=== PATIENT | male | born 1980 | race Caucasian/White ===

== ENCOUNTER → 2016-09-19 | Outpatient (CLI) | payer OTHER ==
[2016-09-19 14:06] LABS: CH 31.6; CHCM 34.8; HCT 50.4 % (39.0-53.0); HDW 2.73; HGB 17.4 gm/dL (13.0-17.5); MCH 31.5 pg (25.0-35.0); MCHC 34.5 g/dL (31.0-37.0); MCV 91.3 fL (80.0-100.0); Mean Platelet Volume 7.4; RBC 5.53 m/uL (4.30-5.90); RDW 12.8 % (11.5-15.5); WBC 6.9 k/uL (3.8-10.6)
[2016-09-19 15:19] LABS: % Iron Saturation 50.2 % (20-50)
== END | disposition home or self-care (01) ==
LOC: LABWHC1 13:25
PROVIDERS: ATTEND Psychiatry & Neurology Neurology
DX: G25.81 Restless legs syndrome (principal); E61.1 Iron deficiency
CPT/HCPCS: 36415; 83540; 83550; 84466; 85027

== ENCOUNTER 2021-05-15 07:07 | Inpatient (IN) | payer OTHER ==
[2021-05-15] MEDS ORDERED: SODIUM CHLORIDE 0.9% 500 ML 500 ML IV ONE (07:26)
[2021-05-15] MEDS ORDERED: DEXAMETHASONE SOD PHOSPHATE 10 MG/ML 1 ML VIAL IV STA (07:26)
--- NOTE | 2021-05-15 07:32 | ED ---
General Adult HPI - General Chief complaint: Shortness of Breath Stated complaint: Chest Pain/JEREMI Time Seen by Provider: 05/15/21 07:16 Source: patient, RN notes reviewed, old records reviewed Mode of arrival: ambulatory Limitations: no limitations - History of Present Illness Initial comments: 41-year-old history of diabetes presenting with increased cough and dyspnea. Patient was diagnosed with coronavirus 9 days ago. He's had symptoms for 10 days. Patient does have some chest congestion, moderate dyspnea and dry cough. He's had fevers. No vomiting or diarrhea. Patient is not vaccinated. - Related Data Allergies Allergy/AdvReac Type Severity Reaction Status Date / Time No Known Allergies Allergy Verified 05/15/21 07:39 Review of Systems ROS Statement: Those systems with pertinent positive or pertinent negative responses have been documented in the HPI. ROS Other: All systems not noted in ROS Statement are negative. Past Medical History Past Medical History: Diabetes Mellitus Additional Past Medical History / Comment(s): obesity History of Any Multi-Drug Resistant Organisms: None Reported Past Surgical History: No Surgical Hx Reported Past Psychological History: Depression Smoking Status: Vaper Past Alcohol Use History: Occasional Past Drug Use History: None Reported General Exam Limitations: no limitations General appearance: alert, in no apparent distress Head exam: Present: atraumatic, normocephalic Eye exam: Present: normal appearance, PERRL ENT exam: Present: mucous membranes dry Neck exam: Present: normal inspection. Absent: tenderness, meningismus Respiratory exam: Present: rales, rhonchi, decreased breath sounds. Absent: respiratory distress, wheezes Cardiovascular Exam: Present: regular rate, normal rhythm GI/Abdominal exam: Present: soft. Absent: distended, tenderness, guarding Extremities exam: Present: normal inspection, normal capillary refill. Absent: pedal edema Neurological exam: Present: alert, oriented X3, CN II-XII intact. Absent: motor sensory deficit Psychiatric exam: Present: normal affect, normal mood Skin exam: Present: warm, dry, intact Course Vital Signs 05/15/21 07:14 Temperature 98.4 F Pulse Rate 84 Respiratory 22 Rate Blood Pressure 114/79 O2 Sat by Pulse 86 L Oximetry EKG Findings - EKG Comments: EKG Findings:: EKG: Normal sinus rhythm, rate of 81, [place] interval 152, QRS duration 92, QTC 436, no ST segment elevation. Medical Decision Making - Medical Decision Making 41-year-old male presenting with cough, dyspnea. Recent diagnosis of coronavirus. Patient is hypoxic on initial evaluation. In the mid 80s. Mo derate respiratory distress. Patient's has chest x-ray showed bilateral infiltrate. He has a normal white blood cell count, he has elevated lactic acid of 2.8, elevated LDH and CRP. He is given steroids and IV fluids in the emergency department. He will be admitted to Dr. Morales who is aware. Both pulmonology and infectious disease placed on consult. - Lab Data Result diagrams: 05/15/21 07:38 05/15/21 07:38 Lab Results 05/15/21 05/15/21 05/15/21 Range/Units 07:38 07:38 07:38 WBC 7.1 (3.8-10.6) k/uL RBC 5.61 (4.30-5.90) m/uL Hgb 17.6 H (13.0-17.5) gm/dL Hct 52.3 (39.0-53.0) % MCV 93.3 (80.0-100.0) fL MCH 31.4 (25.0-35.0) pg MCHC 33.6 (31.0-37.0) g/dL RDW 12.0 (11.5-15.5) % Plt Count 136 L (150-450) k/uL MPV 8.2 Neutrophils % 92 % Lymphocytes % 4 % Monocytes % 4 % Eosinophils % 0 % Basophils % 0 % Neutrophils # 6.5 (1.3-7.7) k/uL Lymphocytes # 0.3 L (1.0-4.8) k/uL Monocytes # 0.3 (0-1.0) k/uL Eosinophils # 0.0 (0-0.7) k/uL Basophils # 0.0 (0-0.2) k/uL PT 11.8 (9.0-12.0) sec INR 1.1 (<1.2) APTT 24.7 (22.0-30.0) sec Sodium 139 (137-145) mmol/L Potassium 3.9 (3.5-5.1) mmol/L Chloride 104 (98-107) mmol/L Carbon Dioxide 24 (22-30) mmol/L Anion Gap 11 mmol/L BUN 19 (9-20) mg/dL Creatinine 0.65 L (0.66-1.25) mg/dL Est GFR (CKD-EPI)AfAm >90 (>60 ml/min/1.73 sqM) Est GFR (CKD-EPI)NonAf >90 (>60 ml/min/1.73 sqM) Glucose 243 H (74-99) mg/dL Plasma Lactic Acid Nico (0.7-2.0) mmol/L Calcium 9.1 (8.4-10.2) mg/dL Magnesium 2.6 H (1.6-2.3) mg/dL Total Bilirubin 0.9 (0.2-1.3) mg/dL AST 34 (17-59) U/L ALT 31 (4-49) U/L Alkaline Phosphatase 52 (38-126) U/L Lactate Dehydrogenase 628 H (313-618) U/L Troponin I (0.000-0.034) ng/mL C-Reactive Protein 24.1 H (<1.0) mg/dL Total Protein 7.3 (6.3-8.2) g/dL Albumin 3.5 (3.5-5.0) g/dL 05/15/21 05/15/21 Range/Units 07:38 07:38 WBC (3.8-10.6) k/uL RBC (4.30-5.90) m/uL Hgb (13.0-17.5) gm/dL Hct (39.0-53.0) % MCV (80.0-100.0) fL MCH (25.0-35.0) pg MCHC (31.0-37.0) g/dL RDW (11.5-15.5) % Plt Count (150-450) k/uL MPV Neutrophils % % Lymphocytes % % Monocytes % % Eosinophils % % Basophils % % Neutrophils # (1.3-7.7) k/uL Lymphocytes # (1.0-4.8) k/uL Monocytes # (0-1.0) k/uL Eosinophils # (0-0.7) k/uL Basophils # (0-0.2) k/uL PT (9.0-12.0) sec INR (<1.2) APTT (22.0-30.0) sec Sodium (137-145) mmol/L Potassium (3.5-5.1) mmol/L Chloride (98-107) mmol/L Carbon Dioxide (22-30) mmol/L Anion Gap mmol/L BUN (9-20) mg/dL Creatinine (0.66-1.25) mg/dL Est GFR (CKD-EPI)AfAm (>60 ml/min/1.73 sqM) Est GFR (CKD-EPI)NonAf (>60 ml/min/1.73 sqM) Glucose (74-99) mg/dL Plasma Lactic Acid Nico 2.8 H* (0.7-2.0) mmol/L Calcium (8.4-10.2) mg/dL Magnesium (1.6-2.3) mg/dL Total Bilirubin (0.2-1.3) mg/dL AST (17-59) U/L ALT (4-49) U/L Alkaline Phosphatase (38-126) U/L Lactate Dehydrogenase (313-618) U/L Troponin I <0.012 (0.000-0.034) ng/mL C-Reactive Protein (<1.0) mg/dL Total Protein (6.3-8.2) g/dL Albumin (3.5-5.0) g/dL Disposition Clinical Impression: COVID-19 Disposition: ADMITTED IP TO THIS [facility] Condition: Stable Is patient prescribed a controlled substance at d/c from ED?: No Referrals: None,Stated [REFERRING] - 1-2 days Decision to Admit Reason: Admit from EC Decision Date: 05/15/21 Decision Time: 08:40
[2021-05-15 07:55] LABS: Basophils % (A) 0 %; Eosinophils % (A) 0 %; HCT 52.3 % (39.0-53.0); HGB 17.6 gm/dL (13.0-17.5); Lymphocytes # (A) 0.3 k/uL (1.0-4.8); Lymphocytes % (A) 4 %; MCH 31.4 pg (25.0-35.0); MCHC 33.6 g/dL (31.0-37.0); MCV 93.3 fL (80.0-100.0); Mean Platelet Volume 8.2; Monocytes # (A) 0.3 k/uL (0-1.0); Monocytes % (A) 4 %; Neutrophils # (A) 6.5 k/uL (1.3-7.7); Neutrophils % (A) 92 %; Platelet Count 136 k/uL (150-450); RBC 5.61 m/uL (4.30-5.90); WBC 7.1 k/uL (3.8-10.6)
[2021-05-15 08:07] LABS: ALT 31 U/L (4-49); AST 34 U/L (17-59); African American GFR (CKD) >90 (>60 ml/min/1.73 sqM); Albumin 3.5 g/dL (3.5-5.0); Alkaline Phosphatase 52 U/L (38-126); Anion Gap 11 mmol/L; Blood Urea Nitrogen 19 mg/dL (9-20); Calcium 9.1 mg/dL (8.4-10.2); Carbon Dioxide 24 mmol/L (22-30); Chloride 104 mmol/L (98-107); Glucose 243 mg/dL (74-99); LDH 628 U/L (313-618); Magnesium 2.6 mg/dL (1.6-2.3); Non-African American GFR(CKD) >90 (>60 ml/min/1.73 sqM); Potassium 3.9 mmol/L (3.5-5.1); Sodium 139 mmol/L (137-145); Total Bilirubin 0.9 mg/dL (0.2-1.3); Total Protein 7.3 g/dL (6.3-8.2)
[2021-05-15 08:08] LABS: INR 1.1 (<1.2); Partial Thromboplastin Time 24.7 sec (22.0-30.0); Prothrombin Time 11.8 sec (9.0-12.0)
[2021-05-15 08:19] LABS: C Reactive Protein 24.1 mg/dL (<1.0)
--- NOTE | 2021-05-15 08:19 | XR ---
EXAMINATION TYPE: XR chest 1V portable DATE OF EXAM: 05/15/2021 COMPARISON: NONE HISTORY: Covid positive, shortness of breath and difficulty breathing TECHNIQUE: Single frontal view of the chest is obtained. FINDINGS: Patchy bilateral airspace disease is present. Patient is rotated. No evident pneumothorax or pleural effusion. Cardiomediastinal silhouette within normal limits accounting for technique. Righ t hemidiaphragm is elevated. IMPRESSION: Correlate for pneumonia.
[2021-05-15] MEDS ORDERED: NALOXONE 0.4 MG/ML 1 ML VIAL IV PRN (08:37)
[2021-05-15] MEDS: SODIUM CHLORIDE 0.9% 1,000 ML IV SCH (09:06)
[2021-05-15] MEDS: ALBUTEROL HFA INHALER INHALATION SCH ×3 (10:53→20:09)
[2021-05-15 11:10] LABS: Glucose,Whole Blood 171 mg/dL (75-99)
[2021-05-15] MEDS: ASCORBIC ACID 500 MG TAB PO SCH (14:20)
[2021-05-15] MEDS: PANTOPRAZOLE 40 MG TABLET PO SCH (14:20)
[2021-05-15] MEDS: CHOLECALCIFEROL 25 MCG (1000 IU) TABLET PO SCH (14:20)
[2021-05-15] MEDS: ZINC SULFATE 220 MG CAP PO SCH (14:20)
[2021-05-15] MEDS: ENOXAPARIN 40 MG/0.4 ML SYRINGE SQ SCH (14:20)
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
--- NOTE | 2021-05-15 15:26 | P.HPIM ---
History of Present Illness H&P Date: 05/15/21 Chief Complaint: Short of breath This is a pleasant 41-year-old patient of Dr. Lio Mendes. Patient has a prior history of diabetes. He lost weight and use of medications. No diet control. Patient has been in the group home for last 4 months. Has been an outbreak in the group home of COVID-19. Patient has not taken vaccination for COVID-19. May 05 she started off getting symptoms the form of a fever. Progressively patient is become more short of breath and coughing. Some change in taste and decrease in smell. Having a mild headache. Tired rundown. Poor appetite. Patient became hypoxic is now admitted. He is outside the hospital guidelines window for IV Remdesivir. Started with IV prednisone. Review of systems: GEN.: Tired EYES: None HEENT: None NECK: None RESPIRATORY: [As above CARDIOVASCULAR: None GASTROINTESTINAL: None GENITOURINARY: None MUSCULOSKELETAL: None LYMPHATICS: None HEMATOLOGICAL: None PSYCHIATRY: None NEUROLOGICAL: None Past medical history to include: Diabetes, currently not on any medications. Social history: Patient is finished to do worse nocturnal ago. Lives with his mother. 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 Family history: Hypertension Physical examination: VITAL SIGNS: 98.4, 84, 22, 140s/79, 86% room air, upon presentation GENERAL: BMI 39.2, laying in bed, awake, tired. EYES: Pupils equal. Conjunctiva normal. HEENT: External appearance of nose and ears normal, oral cavity grossly normal. NECK: JVD not raised; masses not palpable. HEART: First and second heart sounds are normal; no edema. LUNGS: Respiratory rate increased, decreased breath sounds crackles. ABDOMEN: Soft, nontender, liver spleen not palpable, no masses palpable. PSYCH: Alert and oriented x3; mood and affect normal. NEUROLOGICAL: Cranial nerves grossly intact; no facial asymmetry, power and sensation grossly intact. LYMPHATICS: No lymph nodes palpable in the axilla and neck INVESTIGATIONS, reviewed in the clinical context: WBC 7.1 hemoglobin 7.6 platelets 136 lymphocytes 0.3 potassium 3.9 sodium 139 creatinine 0.65 d-dimer 0.59 Glucose 243 plasma lactic acid 2.8 troponin I less than 0.012 CRP 24.1 pro- calcitonin 0.46 Chest x-ray film personally reviewed by me-bilateral infiltrates EKG tracing personally reviewed by me-normal sinus rhythm. Rate 86 Assessment and plan: -COVID 19 pneumonitis the symptoms starting 10 days ago. Progressively getting worse. With hypoxia. Nonvaccinated for COVID-19 Dexamethasone 6, subcu Lovenox, supplemented syncopal vitamin C vitamin D. -Acute hypoxic respiratory failure from COVID 19 pneumonitis Nasal cannula 5 L. Incentive spirometry. -Obesity BMI 39.2 Weight loss measures -Diabetes mellitus type 2, patient been off medications. Currently uncontrolled with hyperglycemia. Expected to get worse with getting steroids Start Levemir 14 units subcu daily at bedtime. Sliding scale insulin. -Thrombocytopenia mild with COVID 19 pneumonitis Follow CBC -Lactic acidosis, type II from fluid deficit IV fluids Dexamethasone, subcu Lovenox, sitting vitamin C vitamin D. Oxygen supplement 5 L. Incentive spirometry. Care was discussed with the patient he has an accompanying soft center in the room. Consultation to pulmonary ID. Given the complexity and severity of patient's condition expect the patient to be in the hospital at least for 2 overnights Past Medical History Past Medical History: Diabetes Mellitus Additional Past Medical History / Comment(s): obesity History of Any Multi-Drug Resistant Organisms: None Reported Past Surgical History: No Surgical Hx Reported Past Psychological History: Depression Smoking Status: Vaper Past Alcohol Use History: Occasional Past Drug Use History: None Reported - Past Family History Father Family Medical History: Hypertension Medications and Allergies Home Medications Medication Instructions Recorded Confirmed Type Acetaminophen Tab [Tylenol Tab] 1,000 mg PO BID PRN 05/15/21 05/15/21 History Ipratropium-Albuterol Nebulize 3 ml INHALATION RT-TID PRN 05/15/21 05/15/21 History [Duoneb 0.5 mg-3 mg/3 ml Soln] Omeprazole 20 mg PO DAILY 05/15/21 05/15/21 History Allergies Allergy/AdvReac Type Severity Reaction Status Date / Time No Known Allergies Allergy Verified 05/15/21 09:01 Physical Exam Vitals: Vital Signs Temp Pulse Resp BP Pulse Ox 05/15/21 11:05 75 18 118/77 89 L 05/15/21 09:08 76 18 118/69 90 L 05/15/21 07:14 98.4 F 84 22 114/79 86 L Intake and Output 05/14/21 05/15/21 05/15/21 22:59 06:59 14:59 Other: Weight 113.398 kg Results CBC & Chem 7: 05/15/21 07:38 05/15/21 07:38 Labs: Abnormal Lab Results - Last 24 Hours (Table) 05/15/21 05/15/21 05/15/21 Range/Units 07:38 07:38 07:38 Hgb 17.6 H (13.0-17.5) gm/dL Plt Count 136 L (150-450) k/uL Lymphocytes # 0.3 L (1.0-4.8) k/uL Creatinine 0.65 L (0.66-1.25) mg/dL Glucose 243 H (74-99) mg/dL POC Glucose (mg/dL) (75-99) mg/dL Plasma Lactic Acid Nico 2.8 H* (0.7-2.0) mmol/L Magnesium 2.6 H (1.6-2.3) mg/dL Lactate Dehydrogenase 628 H (313-618) U/L C-Reactive Protein 24.1 H (<1.0) mg/dL 05/15/21 Range/Units 11:09 Hgb (13.0-17.5) gm/dL Plt Count (150-450) k/uL Lymphocytes # (1.0-4.8) k/uL Creatinine (0.66-1.25) mg/dL Glucose (74-99) mg/dL POC Glucose (mg/dL) 171 H (75-99) mg/dL Plasma Lactic Acid Nico (0.7-2.0) mmol/L Magnesium (1.6-2.3) mg/dL Lactate Dehydrogenase (313-618) U/L C-Reactive Protein (<1.0) mg/dL
[2021-05-15 16:58] LABS: Glucose,Whole Blood 197 mg/dL (75-99)
[2021-05-15] MEDS: INSULIN ASPART (NovoLOG) 100 UNIT/ML VIAL SQ SCH (17:17)
[2021-05-15 20:47] LABS: Glucose,Whole Blood 175 mg/dL (75-99)
[2021-05-16] MEDS: SODIUM CHLORIDE 0.9% 1,000 ML IV SCH ×2 (03:56→11:50)
[2021-05-16 06:48] LABS: Glucose,Whole Blood 150 mg/dL (75-99)
[2021-05-16] MEDS: ZINC SULFATE 220 MG CAP PO SCH (07:36)
[2021-05-16] MEDS: CHOLECALCIFEROL 25 MCG (1000 IU) TABLET PO SCH (07:37)
[2021-05-16] MEDS: ASCORBIC ACID 500 MG TAB PO SCH (07:37)
[2021-05-16] MEDS: PANTOPRAZOLE 40 MG TABLET PO SCH (07:37)
[2021-05-16] MEDS: dexAMETHasone 2 MG TAB PO SCH (07:37)
[2021-05-16] MEDS: INSULIN ASPART (NovoLOG) 100 UNIT/ML VIAL SQ SCH ×3 (07:38→17:06)
[2021-05-16] MEDS: ENOXAPARIN 40 MG/0.4 ML SYRINGE SQ SCH (07:38)
[2021-05-16] MEDS: ALBUTEROL HFA INHALER INHALATION SCH ×4 (07:50→19:03)
--- NOTE | 2021-05-16 08:18 | P.CONS ---
History of Present Illness - Reason for Consult Consult date: 05/15/21 covid 19 pneumonia Requesting physician: Juvencio Morales - Chief Complaint shortness of breath and cough x 10 days - History of Present Illness History of present illness : Patient is 49-year-old male with a past medical history significant for diabetes mellitus in this patient started getting sick around May 05 when started having a fever some congestion cough patient was diagnosed with a COVID-19 1 9 days ago patient has not been brought to the ER early this morning for evaluation of increasing shortness of breath persistent fever and cough patient been complaining of shortness of breath on minimal exertion even he has a cough which is moderate intensity and mostly dry in nature no pleuritic chest pain some nausea decreased oral intake but no vomiting no abdominal pain no diarrhea patient on presentation the hospital was afebrile patient was hypoxic with O2 sats of 86% on room air did have a normal white count with lymphopenia D-dimer was normal creatinine was normal lactic acid was elevated did have elevated ferritin level exams are normal CRP is 24.1 blood cultures 0.46 patient did have a chest x-ray correlate for pneumonia patient was admitted to hospital infectious disease was consulted for further management Review of system: CONSTITUTIONAL: Positive for weakness along with the fever. EYES: No complaint. ENT: No complaint. RESPIRATORY: As per history of present illness. CARDIOVASCULAR: No complaint. GENITOURINARY: No complaint. GASTROINTESTINAL: As per history of present illness. MUSCULOSKELETAL: No complaint. INTEGUMENTARY: No complaint. PSYCHOLOGIC: No complaint. ENDOCRINE: No complaint. NEUROLOGIC: No complaint. Past medical history : Reviewed, documented below Past surgical history : Reviewed, documented below Social history: Reviewed, documented below Medications: Reviewed, as documented below EXAMINATION: Vital sigans= Reviewed and documented below GENERAL DESCRIPTION: Middle-aged male lying in bed, no distress. No tachypnea or accessory muscle of respiration use. HEENT: Shows Pallor , no scleral icterus. Oral mucous membrane is dry. NECK: Trachea central, no thyromegaly. LUNGS: Unlabored breathing. Coarse breath sounds in the bases bilaterally. No wheeze HEART: S1, S2, regular rate and rhythm. ABDOMEN: Soft, no tenderness , guarding or rigidity EXTREMITIES: No edema of feet. SKIN: No rash, no masses palpable. NEUROLOGICAL: The patient is awake, alert, oriented x3, mood and affect normal. LABS AND RADIOLOGY: Reviewed results see below Assessment : Patient presented to hospital with increasing shortness of breath and cough in this patient who did have evidence of multifocal pneumonia secondary to COVID-19 infection patient symptom has been going on for more than 10 days now and will not qualify for remdesivir per [facility] policy, clinically no evidence of any secondary bacterial pneumonia and treatment is mostly supportive Plan: 1-patient has been started on Lovenox on dexamethasone zinc and ascorbic acid 2-no need for systemic antibiotics 3-droplet isolation and respiratory support We will follow on clinical condition and cultures to further adjust medication if needed Thank you for this consultation we will follow the patient along with you Past Medical History Past Medical History: Diabetes Mellitus Additional Past Medical History / Comment(s): obesity History of Any Multi-Drug Resistant Organisms: None Reported Past Surgical History: No Surgical Hx Reported Past Anesthesia/Blood Transfusion Reactions: No Reported Reaction Past Psychological History: Depression Smoking Status: Vaper Past Alcohol Use History: Occasional Past Drug Use History: None Reported - Past Family History Father Family Medical History: Hypertension Medications and Allergies Home Medications Medication Instructions Recorded Confirmed Type Acetaminophen Tab [Tylenol Tab] 1,000 mg PO BID PRN 05/15/21 05/15/21 History Ipratropium-Albuterol Nebulize 3 ml INHALATION RT-TID PRN 05/15/21 05/15/21 History [Duoneb 0.5 mg-3 mg/3 ml Soln] Omeprazole 20 mg PO DAILY 05/15/21 05/15/21 History Allergies Allergy/AdvReac Type Severity Reaction Status Date / Time No Known Allergies Allergy Verified 05/15/21 09:01 Physical Exam Vitals: Vital Signs Temp Pulse Pulse Resp BP BP Pulse Ox 05/15/21 13:30 97.6 F 67 20 120/80 91 L 05/15/21 12:56 90 L 05/15/21 11:05 75 18 118/77 89 L 05/15/21 09:08 76 18 118/69 90 L 05/15/21 07:14 98.4 F 84 22 114/79 86 L Intake and Output 05/15/21 05/15/21 05/15/21 06:59 14:59 22:59 Other: Weight 113.398 kg Results CBC & Chem 7: 05/15/21 07:38 05/15/21 07:38 Labs: Abnormal Lab Results - Last 24 Hours (Table) 05/15/21 05/15/21 05/15/21 Range/Units 07:38 07:38 07:38 Hgb 17.6 H (13.0-17.5) gm/dL Plt Count 136 L (150-450) k/uL Lymphocytes # 0.3 L (1.0-4.8) k/uL Creatinine 0.65 L (0.66-1.25) mg/dL Glucose 243 H (74-99) mg/dL POC Glucose (mg/dL) (75-99) mg/dL Plasma Lactic Acid Nico 2.8 H* (0.7-2.0) mmol/L Magnesium 2.6 H (1.6-2.3) mg/dL Ferritin 1834.0 H (22.0-322.0) ng/mL Lactate Dehydrogenase 628 H (313-618) U/L C-Reactive Protein 24.1 H (<1.0) mg/dL Procalcitonin (0.02-0.09) ng/mL 05/15/21 05/15/21 Range/Units 07:38 11:09 Hgb (13.0-17.5) gm/dL Plt Count (150-450) k/uL Lymphocytes # (1.0-4.8) k/uL Creatinine (0.66-1.25) mg/dL Glucose (74-99) mg/dL POC Glucose (mg/dL) 171 H (75-99) mg/dL Plasma Lactic Acid Nico (0.7-2.0) mmol/L Magnesium (1.6-2.3) mg/dL Ferritin (22.0-322.0) ng/mL Lactate Dehydrogenase (313-618) U/L C-Reactive Protein (<1.0) mg/dL Procalcitonin 0.46 H (0.02-0.09) ng/mL
[2021-05-16 11:39] LABS: Glucose,Whole Blood 138 mg/dL (75-99)
[2021-05-16] MEDS: BARICITINIB 2 MG TABLET PO SCH (13:45)
[2021-05-16 14:51] VITALS: BMI 39.1
--- NOTE | 2021-05-16 15:17 | P.PN ---
Subjective Progress Note Date: 05/16/21 Principal diagnosis: Coronavirus associated pneumonia. This is a 41-year-old male patient with a history of diabetes mellitus, obesity, vaping. He has a 10 day history of fever, poor appetite, shortness of breath cough and congestion that has been progressively worse. He tested positive for COVID-19 on 05/05/2021 as an inmate at the [facility]. He was brought into the emergency room today for progressing symptoms and was found to be hypoxemic with O2 saturation 86% on room air. Chest x-ray reveals bilateral patchy airspace disease. White count 7.1. Reglan 17.6. Platelets 136. Lymphocytes 0.3. D-dimer 0.59. Sodium 139. Potassium 3.9. Creatinine 0.65. Glucose 171. Lactic acid 1.4. Ferritin 1834. AST 34. ALT 31. LDH 628. C- reactive protein 24.1. Pro-calcitonin 0.46. He's been initiated on Decadron, Lovenox, vitamin supplements. He is seen on the regular medical floor. He sitting up in bed. Awake and alert in no acute distress. He is maintaining O2 saturations 89-90% on 5 L/m per nasal cannula. Progress note dated 05/16/2021. 41-year-old male, with a history of diabetes and obesity. The patient wasn't inmate at [facility]. He was brought to the hospital with increasing shortness of breath, and discovered to have coronavirus associated pneumonia. Currently, he is on nonrebreather mask, and nasal cannula high flow, and 15 L/m. He states that he feels okay when he sitting still, but becomes very short of breath when he exerts himself. Because of his worsening oxygenation, today we started him on HEVER. No new laboratory data on this patient. Chest x-ray from yesterday is reviewed. Objective - Vital Signs Vital signs: Vital Signs Temp 98.5 F 05/16/21 09:09 Pulse 63 05/16/21 09:09 Resp 17 05/16/21 09:09 BP 118/76 05/16/21 09:09 Pulse Ox 91 L 05/16/21 11:36 Intake & Output 05/15/21 05/16/21 05/16/21 18:59 06:59 18:59 Weight 113.398 kg 113.398 kg Other: # Voids 2 # Bowel Movements 1 - Exam Oriented 3, mild tachypnea, no audible wheezing, use of accessory muscles, or conversational dyspnea. HEENT examination is grossly unremarkable. Neck supple. Full range of motion. No adenopathy thyromegaly or neck vein distention. Cardiovascular examination reveals regular rhythm rate. S1-S2 normal. No S3 or S4. No discernible murmur noted. Heart sounds are distant. Heart rate 63 bpm. Lungs reveal diffuse bilateral rhonchi. Mild crackles are noted. No wheezes. Breath sounds are equal bilaterally. Saturations are between 89 and 92%. Currently on a nonrebreather mask, and 15 L high flow nasal cannula. Abdomen soft bowel sounds are heard. No masses or tenderness. Extremities are intact. No cyanosis clubbing or edema. Skin is without rash or lesion. Neurologic examination is brief but nonfocal. - Labs CBC & Chem 7: 05/15/21 07:38 05/15/21 07:38 Labs: Abnormal Lab Results - Last 24 Hours (Table) 05/15/21 05/15/21 05/16/21 Range/Units 16:56 20:44 06:47 POC Glucose (mg/dL) 197 H 175 H 150 H (75-99) mg/dL 05/16/21 Range/Units 11:37 POC Glucose (mg/dL) 138 H (75-99) mg/dL Assessment and Plan Assessment: Acute hypoxemic respiratory failure secondary to coronavirus associated pneumonia. Elevated inflammatory markers secondary to coronavirus infection. Obesity. History of diabetes mellitus. Plan: Plan dated 05/16/2021. The patient seems to be reasonably stable, though becomes very short of breath with any activity. He remains on a nonrebreather mask, and 15 L high flow nasal cannula. Today, in addition to the current medications, we added HEVER. His other medications including albuterol inhaler, vitamin C, vitamin D3, and zinc, as well as Decadron, and Lovenox. Additional recommendations and suggestions are forthcoming. We will continue to follow the patient and make recommend ations where appropriate. Time with Patient: Less than 30
[2021-05-16 16:42] LABS: Glucose,Whole Blood 139 mg/dL (75-99)
--- NOTE | 2021-05-16 19:24 | P.PN ---
Progress Note - Text Progress Note Date: 05/16/21 Chief Complaint: Short of breath This is a pleasant 41-year-old patient of Dr. Lio Mendes. Patient has a prior history of diabetes. He lost weight and use of medications. No diet control. Patient has been in the shelter for last 4 months. Has been an outbreak in the shelter of COVID-19. Patient has not taken vaccination for COVID-19. May 05 she started off getting symptoms the form of a fever. Progressively patient is become more short of breath and coughing. Some change in taste and decrease in smell. Having a mild headache. Tired rundown. Poor appetite. Patient became hypoxic is now admitted. He is outside the hospital guidelines window for IV Remdesivir. Started with IV prednisone. May 16: Patient got up to 15 L of high flow cannula. With a nonrebreather. The mask is not fitting well. I've asked the nurse to try to adjust that. Not much of an appetite. Tired. We'll have the patient sit up in a chair Review of systems: Was done for constitutional, cardiovascular, GI, pulmonary. relevant finding as above Active Medications Acetaminophen (Acetaminophen Tab 325 Mg Tab) 650 mg PO Q6HR PRN PRN Reason: Mild Pain or Fever > 100.5 Albuterol Sulfate (Albuterol Hfa Inhaler) 2 puff INHALATION RT-QID [facility] Last Admin: 05/16/21 19:03 Dose: 2 puff Documented by: Ascorbic Acid (Ascorbic Acid 500 Mg Tab) 1,000 mg PO DAILY [facility] Last Admin: 05/16/21 07:37 Dose: 1,000 mg Documented by: Baricitinib (Baricitinib 2 Mg Tablet) 4 mg PO DAILY@1200 [facility] Stop: 05/29/21 12:01 Last Admin: 05/16/21 13:45 Dose: 4 mg Documented by: Cholecalciferol (Cholecalciferol 25 Mcg (1000 Iu) Tablet) 100 mcg PO DAILY [facility] Last Admin: 05/16/21 07:37 Dose: 100 mcg Documented by: Dexamethasone (Dexamethasone 2 Mg Tab) 6 mg PO DAILY [facility] Last Admin: 05/16/21 07:37 Dose: 6 mg Documented by: Enoxaparin Sodium (Enoxaparin 40 Mg/0.4 Ml Syringe) 40 mg SQ DAILY [facility] Last Admin: 05/16/21 07:38 Dose: 40 mg Documented by: Sodium Chloride (Saline 0.9%) 1,000 mls @ 75 mls/hr IV .[id number] [facility] Last Admin: 05/16/21 11:50 Dose: 75 mls/hr Documented by: Insulin Aspart (Insulin Aspart (Novolog) 100 Unit/Ml Vial) 0 unit SQ AC-TID [facility]; Protocol Last Admin: 05/16/21 17:06 Dose: 1 unit Documented by: Naloxone HCl (Naloxone 0.4 Mg/Ml 1 Ml Vial) 0.2 mg IV Q2M PRN PRN Reason: Opioid Reversal Pantoprazole Sodium (Pantoprazole 40 Mg Tablet) 40 mg PO DAILY [facility] Last Admin: 05/16/21 07:37 Dose: 40 mg Documented by: Zinc Sulfate (Zinc Sulfate 220 Mg Cap) 220 mg PO DAILY [facility] Last Admin: 05/16/21 07:36 Dose: 220 mg Documented by: Past medical history to include: Diabetes, currently not on any medications. Social history: Patient is finished to do worse nocturnal ago. Lives with his mother. 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 Family history: Hypertension Physical examination: VITAL SIGNS: 99, 77, 19, 132/83, 91% on 15 L, Ventimask-low GENERAL: Declining in bed, awake, short of breath. LUNGS: Respiratory rate increased, PSYCH: Alert and oriented x3; mood and affect anxious NEUROLOGICAL: Cranial nerves grossly intact; no facial asymmetry, moving all 4 limbs Rest of exam as per pulmonary and nursing INVESTIGATIONS, reviewed in the clinical context: WBC 7.1 hemoglobin 7.6 platelets 136 lymphocytes 0.3 potassium 3.9 sodium 139 creatinine 0.65 d-dimer 0.59 Glucose 243 plasma lactic acid 2.8 troponin I less than 0.012 CRP 24.1 pro- calcitonin 0.46 Chest x-ray film personally reviewed by me-bilateral infiltrates EKG tracing personally reviewed by me-normal sinus rhythm. Rate 86 Assessment and plan: -COVID 19 pneumonitis the symptoms starting 10 days ago. Progressively getting worse. With hypoxia. Nonvaccinated for COVID-19: Worsening Dexamethasone 6, subcu Lovenox, supplemented syncopal vitamin C vitamin D. -Acute hypoxic respiratory failure from COVID 19 pneumonitis: Worsening Nasal cannula 15 L. Incentive spirometry. -Obesity BMI 39.2 Weight loss measures -Diabetes mellitus type 2, patient been off medications. Currently uncontrolled with hyperglycemia. Expected to get worse with getting steroids Start Levemir 14 units subcu daily at bedtime. Sliding scale insulin. -Thrombocytopenia mild with COVID 19 pneumonitis Follow CBC -Lactic acidosis, type II from fluid deficit IV fluids Dexamethasone, subcu Lovenox, sitting vitamin C vitamin D. Oxygen supplement 15 L. Incentive spirometry. Care was discussed with the patient
[2021-05-16 20:27] LABS: Glucose,Whole Blood 177 mg/dL (75-99)
--- NOTE | 2021-05-16 22:21 | PN ---
PROGRESS NOTE DATE OF SERVICE: 05/16/2021 REASON FOR FOLLOWUP: COVID-19 pneumonia. INTERVAL HISTORY: The patient is afebrile. Complaining of more shortness of breath today. The patient denies having any chest pain. He continues to have a cough, bringing up some sputum. No vomiting. No abdominal pain or diarrhea. PHYSICAL EXAMINATION: Blood pressure 136/75, pulse of 59, temperature 98.1. He is 91% on 15 L of high-flow oxygen. General description is a middle-aged male lying in bed in no distress. RESPIRATORY SYSTEM: Unlabored breathing. Decreased intensity of breath sounds. No wheeze. HEART: S1, S2. Regular rate and rhythm. ABDOMEN: Soft. No tenderness. EXTREMITIES: No edema of the feet. LABS: No new labs have been obtained today. DIAGNOSTIC IMPRESSION AND PLAN: Patient with acute COVID-19 pneumonia in this patient who did have overall worsening of his condition in the last 24 hours. The patient will be started on baricitinib; to continue along with dexamethasone, Lovenox, zinc and ascorbic acid and respiratory support. Monitor clinical course closely. MMODL / IJN: [id number] /
[2021-05-17] MEDS: SODIUM CHLORIDE 0.9% 1,000 ML IV SCH ×2 (03:12→11:50)
[2021-05-17 07:04] LABS: Glucose,Whole Blood 140 mg/dL (75-99)
[2021-05-17] MEDS: ENOXAPARIN 40 MG/0.4 ML SYRINGE SQ SCH (07:07)
[2021-05-17] MEDS: ASCORBIC ACID 500 MG TAB PO SCH (07:07)
[2021-05-17] MEDS: PANTOPRAZOLE 40 MG TABLET PO SCH (07:07)
[2021-05-17] MEDS: dexAMETHasone 2 MG TAB PO SCH (07:07)
[2021-05-17] MEDS: CHOLECALCIFEROL 25 MCG (1000 IU) TABLET PO SCH (07:07)
[2021-05-17] MEDS: ZINC SULFATE 220 MG CAP PO SCH (07:08)
[2021-05-17] MEDS: INSULIN ASPART (NovoLOG) 100 UNIT/ML VIAL SQ SCH ×3 (07:08→17:05)
[2021-05-17 08:21] LABS: Basophils % (A) 0 %; Eosinophils % (A) 0 %; HCT 49.3 % (39.0-53.0); HGB 16.1 gm/dL (13.0-17.5); Lymphocytes # (A) 0.5 k/uL (1.0-4.8); Lymphocytes % (A) 7 %; MCH 31.1 pg (25.0-35.0); MCHC 32.7 g/dL (31.0-37.0); MCV 95.2 fL (80.0-100.0); Monocytes # (A) 0.6 k/uL (0-1.0); Monocytes % (A) 8 %; Neutrophils # (A) 6.2 k/uL (1.3-7.7); Neutrophils % (A) 84 %; Platelet Count 180 k/uL (150-450); RBC 5.17 m/uL (4.30-5.90); WBC 7.3 k/uL (3.8-10.6)
[2021-05-17 08:40] LABS: ALT 26 U/L (4-49); AST 28 U/L (17-59); African American GFR (CKD) >90 (>60 ml/min/1.73 sqM); Albumin 2.9 g/dL (3.5-5.0); Albumin/Globulin Ratio 0.9; Alkaline Phosphatase 43 U/L (38-126); Anion Gap 6 mmol/L; Blood Urea Nitrogen 22 mg/dL (9-20); Calcium 8.7 mg/dL (8.4-10.2); Carbon Dioxide 26 mmol/L (22-30); Chloride 113 mmol/L (98-107); Globulin 3.3 g/dL; Glucose 156 mg/dL (74-99); Non-African American GFR(CKD) >90 (>60 ml/min/1.73 sqM); Potassium 4.4 mmol/L (3.5-5.1); Sodium 145 mmol/L (137-145); Total Bilirubin 0.9 mg/dL (0.2-1.3); Total Protein 6.2 g/dL (6.3-8.2)
[2021-05-17] MEDS: ALBUTEROL HFA INHALER INHALATION SCH ×4 (08:51→21:57)
[2021-05-17 11:29] LABS: Glucose,Whole Blood 120 mg/dL (75-99)
[2021-05-17] MEDS: BARICITINIB 2 MG TABLET PO SCH (11:51)
--- NOTE | 2021-05-17 11:56 | P.PN ---
Subjective Progress Note Date: 05/17/21 Principal diagnosis: Coronavirus associated pneumonia. This is a 41-year-old male patient with a history of diabetes mellitus, obesity, vaping. He has a 10 day history of fever, poor appetite, shortness of breath cough and congestion that has been progressively worse. He tested positive for COVID-19 on 05/05/2021 as an inmate at the [facility]. He was brought into the emergency room today for progressing symptoms and was found to be hypoxemic with O2 saturation 86% on room air. Chest x-ray reveals bilateral patchy airspace disease. White count 7.1. Reglan 17.6. Platelets 136. Lymphocytes 0.3. D-dimer 0.59. Sodium 139. Potassium 3.9. Creatinine 0.65. Glucose 171. Lactic acid 1.4. Ferritin 1834. AST 34. ALT 31. LDH 628. C- reactive protein 24.1. Pro-calcitonin 0.46. He's been initiated on Decadron, Lovenox, vitamin supplements. He is seen on the regular medical floor. He sitting up in bed. Awake and alert in no acute distress. He is maintaining O2 saturations 89-90% on 5 L/m per nasal cannula. Progress note dated 05/16/2021. 41-year-old male, with a history of diabetes and obesity. The patient wasn't inmate at [facility]. He was brought to the hospital with increasing shortness of breath, and discovered to have coronavirus associated pneumonia. Currently, he is on nonrebreather mask, and nasal cannula high flow, and 15 L/m. He states that he feels okay when he sitting still, but becomes very short of breath when he exerts himself. Because of his worsening oxygenation, today we started him on HEVER. No new laboratory data on this patient. Chest x-ray from yesterday is reviewed. Progress note dated 05/17/2021. 41-year-old male, with a history of diabetes mellitus and obesity. The patient was seen yesterday and again seen today, in room 484. He is an inmate at [facility]. He was brought in with coronavirus associated pneumonia, and increasing shortness of breath. He remains on a partial rebreather mask, and 15 L high flow nasal O2. An officer is in the room with him. He is laying flat in bed. Does not appear to be in any significant distress. Currently labs include a white count 7.3, he will be 16.1, hematocrit 49.3, platelet count 180,000. D- dimer is 0.66. Sodium 145, potassium 4.4, chlorides 113, CO2 26, normal anion gap, BUN 22, and creatinine 0.82. No recent chest x-ray, the last one being done on May 15. Objective - Vital Signs Vital signs: Vital Signs Temp 99.3 F 05/17/21 09:54 Pulse 50 L 05/17/21 09:54 Resp 22 05/17/21 09:54 BP 125/81 05/17/21 09:54 Pulse Ox 90 L 05/17/21 09:54 Intake & Output 05/16/21 05/17/21 05/17/21 18:59 06:59 18:59 Intake Total 600 Balance 600 Weight 113.398 kg Intake: Intake, IV Titration 600 Amount Sodium Chloride 0.9% 1, 600 000 ml @ 75 mls/hr IV . [id number] [facility] Rx#:[id number] Other: # Voids 2 1 - Exam Oriented 3, mild tachypnea, no audible wheezing, use of accessory muscles, or conversational dyspnea. HEENT examination is grossly unremarkable. Neck supple. Full range of motion. No adenopathy thyromegaly or neck vein distention. Cardiovascular examination reveals regular rhythm rate. S1-S2 normal. No S3 or S4. No discernible murmur noted. Heart sounds are distant. Heart rate 56 bpm. Lungs reveal diffuse bilateral rhonchi. Mild crackles are noted. No wheezes. Breath sounds are equal bilaterally. Saturations are between 90 and 92%. Currently on a partial rebreather mask, and 15 L high flow nasal cannula. Abdomen soft bowel sounds are heard. No masses or tenderness. Extremities are intact. No cyanosis clubbing or edema. Skin is without rash or lesion. Neurologic examination is brief but nonfocal. - Labs CBC & Chem 7: 05/17/21 08:00 05/17/21 07:53 Labs: Abnormal Lab Results - Last 24 Hours (Table) 05/16/21 05/16/21 05/17/21 Range/Units 16:39 20:26 07:03 Lymphocytes # (1.0-4.8) k/uL D-Dimer (<0.60) mg/L FEU Chloride (98-107) mmol/L BUN (9-20) mg/dL Glucose (74-99) mg/dL POC Glucose (mg/dL) 139 H 177 H 140 H (75-99) mg/dL C-Reactive Protein (<1.0) mg/dL Total Protein (6.3-8.2) g/dL Albumin (3.5-5.0) g/dL 05/17/21 05/17/21 05/17/21 Range/Units 07:53 07:53 07:53 Lymphocytes # (1.0-4.8) k/uL D-Dimer 0.66 H (<0.60) mg/L FEU Chloride 113 H (98-107) mmol/L BUN 22 H (9-20) mg/dL Glucose 156 H (74-99) mg/dL POC Glucose (mg/dL) (75-99) mg/dL C-Reactive Protein 4.1 H (<1.0) mg/dL Total Protein 6.2 L (6.3-8.2) g/dL Albumin 2.9 L (3.5-5.0) g/dL 05/17/21 05/17/21 Range/Units 08:00 11:28 Lymphocytes # 0.5 L (1.0-4.8) k/uL D-Dimer (<0.60) mg/L FEU Chloride (98-107) mmol/L BUN (9-20) mg/dL Glucose (74-99) mg/dL POC Glucose (mg/dL) 120 H (75-99) mg/dL C-Reactive Protein (<1.0) mg/dL Total Protein (6.3-8.2) g/dL Albumin (3.5-5.0) g/dL Assessment and Plan Assessment: Acute hypoxemic respiratory failure secondary to coronavirus associated pneumonia. Elevated inflammatory markers secondary to coronavirus infection. Obesity. History of diabetes mellitus. Plan: Plan dated 05/16/2021. The patient seems to be reasonably stable, though becomes very short of breath with any activity. He remains on a nonrebreather mask, and 15 L high flow nasal cannula. Today, in addition to the current medications, we added HEVER. His other medications including albuterol inhaler, vitamin C, vitamin D3, and zinc, as well as Decadron, and Lovenox. Additional recommendations and suggestions are forthcoming. We will continue to follow the patient and make recommendations where appropriate. Plan dated 05/17/2021. The patient appears to be reasonably stable today. He is receiving all appropriate medications. Yesterday, he was on a nonrebreather mass. Today's on a partial rebreather mask. He is receiving normal medications including albuterol inhaler, vitamin C, vitamin D3, zinc, Decadron, Lovenox, and HEVER. We will continue to follow make recommendations where appropriate. Prognosis is guarded. The patient is likely a bit better today than he was yesterday. I did tell him to move about in bed when he is laying in bed. Time with Patient: Less than 30
--- NOTE | 2021-05-17 12:57 | P.PN ---
Progress Note - Text Progress Note Date: 05/17/21 Chief Complaint: Short of breath This is a pleasant 41-year-old patient of Dr. Lio Mendes. Patient has a prior history of diabetes. He lost weight and use of medications. No diet control. Patient has been in the shelter for last 4 months. Has been an outbreak in the shelter of COVID-19. Patient has not taken vaccination for COVID-19. May 05 she started off getting symptoms the form of a fever. Progressively patient is become more short of breath and coughing. Some change in taste and decrease in smell. Having a mild headache. Tired rundown. Poor appetite. Patient became hypoxic is now admitted. He is outside the hospital guidelines window for IV Remdesivir. Started with IV prednisone. May 16: Patient got up to 15 L of high flow cannula. With a nonrebreather. The mask is not fitting well. I've asked the nurse to try to adjust that. Not much of an appetite. Tired. We'll have the patient sit up in a chair May 17: Remains on 15 L high flow cannula. An nonrebreather. Tired. Eating about 50%. Shortness of breath. In bed. Baricitinib started yesterday Review of systems: Was done for constitutional, cardiovascular, GI, pulmonary. relevant finding as above Active Medications Acetaminophen (Acetaminophen Tab 325 Mg Tab) 650 mg PO Q6HR PRN PRN Reason: Mild Pain or Fever > 100.5 Albuterol Sulfate (Albuterol Hfa Inhaler) 2 puff INHALATION RT-QID [facility] Last Admin: 05/17/21 11:45 Dose: 2 puff Documented by: Ascorbic Acid (Ascorbic Acid 500 Mg Tab) 1,000 mg PO DAILY [facility] Last Admin: 05/17/21 07:07 Dose: 1,000 mg Documented by: Baricitinib (Baricitinib 2 Mg Tablet) 4 mg PO DAILY@1200 [facility] Stop: 05/29/21 12:01 Last Admin: 05/17/21 11:51 Dose: 4 mg Documented by: Cholecalciferol (Cholecalciferol 25 Mcg (1000 Iu) Tablet) 100 mcg PO DAILY [facility] Last Admin: 05/17/21 07:07 Dose: 100 mcg Documented by: Dexamethasone (Dexamethasone 2 Mg Tab) 6 mg PO DAILY [facility] Last Admin: 05/17/21 07:07 Dose: 6 mg Documented by: Enoxaparin Sodium (Enoxaparin 40 Mg/0.4 Ml Syringe) 40 mg SQ DAILY [facility] Last Admin: 05/17/21 07:07 Dose: 40 mg Documented by: Sodium Chloride (Saline 0.9%) 1,000 mls @ 75 mls/hr IV .[id number] [facility] Last Admin: 05/17/21 11:50 Dose: 75 mls/hr Documented by: Insulin Aspart (Insulin Aspart (Novolog) 100 Unit/Ml Vial) 0 unit SQ AC-TID [facility]; Protocol Last Admin: 05/17/21 11:39 Dose: Not Given Documented by: Naloxone HCl (Naloxone 0.4 Mg/Ml 1 Ml Vial) 0.2 mg IV Q2M PRN PRN Reason: Opioid Reversal Pantoprazole Sodium (Pantoprazole 40 Mg Tablet) 40 mg PO DAILY [facility] Last Admin: 05/17/21 07:07 Dose: 40 mg Documented by: Zinc Sulfate (Zinc Sulfate 220 Mg Cap) 220 mg PO DAILY [facility] Last Admin: 05/17/21 07:08 Dose: 220 mg Documented by: Past medical history to include: Diabetes, currently not on any medications. Social history: Patient is finished to do worse nocturnal ago. Lives with his mother. 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 GENERAL: reclining in bed, awake, short of breath. LUNGS: Respiratory rate increased, PSYCH: Alert and oriented x3; mood and affect anxious NEUROLOGICAL: Cranial nerves grossly intact; no facial asymmetry, moving all 4 limbs Rest of exam as per pulmonary and nursing INVESTIGATIONS, reviewed in the clinical context: May 17: White count 7.3 hemoglobin 16.1 potassium 4.4 creatinine 0.82 d- dimer 0.66 glucose 156 WBC 7.1 hemoglobin 7.6 platelets 136 lymphocytes 0.3 potassium 3.9 sodium 139 creatinine 0.65 d-dimer 0.59 Glucose 243 plasma lactic acid 2.8 troponin I less than 0.012 CRP 24.1 pro- calcitonin 0.46 Chest x-ray film personally reviewed by me-bilateral infiltrates EKG tracing personally reviewed by me-normal sinus rhythm. Rate 86 Assessment and plan: -COVID 19 pneumonitis the symptoms starting 10 days ago. Progressively getting worse. With hypoxia. Nonvaccinated for COVID-19: Not improving Dexamethasone 6, subcu Lovenox, supplemented syncopal vitamin C vitamin D. Baricitinib started yesterday -Acute hypoxic respiratory failure from COVID 19 pneumonitis: Not improving Nasal cannula 15 L. Incentive spirometry. -Obesity BMI 39.2 Weight loss measures -Diabetes mellitus type 2, patient been off medications. Currently uncontrolled with hyperglycemia. Secondary to steroids Levemir 14 units subcu daily at bedtime. Sliding scale insulin. -Thrombocytopenia mild with COVID 19 pneumonitis Follow CBC -Lactic acidosis, type II from fluid deficit IV fluids - Dexamethasone, subcu Lovenox, vitamin C vitamin D. Oxygen supplement 15 L. Incentive spirometry. Care was discussed with the patient
[2021-05-17 16:24] LABS: Glucose,Whole Blood 134 mg/dL (75-99)
[2021-05-17] MEDS: ACETAMINOPHEN TAB 325 MG TAB PO PRN (20:13)
--- NOTE | 2021-05-17 22:23 | PN ---
PROGRESS NOTE DATE OF SERVICE: 05/17/2021 REASON FOR FOLLOWUP: COVID-19 pneumonia. INTERVAL HISTORY: The patient is afebrile. The patient is breathing slightly comfortably; still requiring non-rebreather. Denies having any chest pain or worsening cough. No nausea, no vomiting. No abdominal pain or diarrhea. PHYSICAL EXAMINATION: Blood pressure 148/93 with a pulse of , temperature 98.2. He is 95% on non- rebreather. General description is a middle-aged male lying in bed in no distress. RESPIRATORY SYSTEM: Unlabored breathing. Decreased intensity of breath sounds. No wheeze. HEART: S1, S2. Regular rate and rhythm. ABDOMEN: Soft. No tenderness. LABS: Hemoglobin is 16, white count 7.3, creatinine 0.82. DIAGNOSTIC IMPRESSION AND PLAN: Patient with acute COVID-19 pneumonia in this patient with acute respiratory failure and need for high-flow oxygen non-breather. Patient is currently covered with baricitinib, dexamethasone, Lovenox, zinc and ascorbic acid; to continue along with respiratory support and monitor his clinical course closely. MMODL / IJN: [id number] /
[2021-05-18] MEDS: SODIUM CHLORIDE 0.9% 1,000 ML IV SCH ×2 (04:45→08:17)
[2021-05-18 07:15] LABS: Glucose,Whole Blood 137 mg/dL (75-99)
[2021-05-18] MEDS: ENOXAPARIN 40 MG/0.4 ML SYRINGE SQ SCH (08:09)
[2021-05-18] MEDS: dexAMETHasone 2 MG TAB PO SCH (08:09)
[2021-05-18] MEDS: ZINC SULFATE 220 MG CAP PO SCH (08:10)
[2021-05-18] MEDS: ASCORBIC ACID 500 MG TAB PO SCH (08:10)
[2021-05-18] MEDS: PANTOPRAZOLE 40 MG TABLET PO SCH (08:10)
[2021-05-18] MEDS: CHOLECALCIFEROL 25 MCG (1000 IU) TABLET PO SCH (08:10)
[2021-05-18] MEDS: INSULIN ASPART (NovoLOG) 100 UNIT/ML VIAL SQ SCH ×3 (08:16→17:10)
[2021-05-18] MEDS: ALBUTEROL HFA INHALER INHALATION SCH ×4 (08:27→21:03)
[2021-05-18 08:30] LABS: Basophils % (A) 0 %; Eosinophils % (A) 0 %; HGB 16.1 gm/dL (13.0-17.5); Lymphocytes # (A) 0.6 k/uL (1.0-4.8); Lymphocytes % (A) 9 %; MCH 30.7 pg (25.0-35.0); MCHC 32.9 g/dL (31.0-37.0); MCV 93.5 fL (80.0-100.0); Monocytes # (A) 0.4 k/uL (0-1.0); Monocytes % (A) 6 %; Neutrophils # (A) 5.8 k/uL (1.3-7.7); Neutrophils % (A) 83 %; Platelet Count 189 k/uL (150-450); RBC 5.24 m/uL (4.30-5.90); RDW 11.8 % (11.5-15.5); WBC 6.9 k/uL (3.8-10.6)
[2021-05-18 08:58] LABS: ALT 41 U/L (4-49); AST 36 U/L (17-59); African American GFR (CKD) >90 (>60 ml/min/1.73 sqM); Albumin 2.8 g/dL (3.5-5.0); Albumin/Globulin Ratio 0.9; Alkaline Phosphatase 41 U/L (38-126); Anion Gap 7 mmol/L; Blood Urea Nitrogen 22 mg/dL (9-20); Calcium 8.7 mg/dL (8.4-10.2); Carbon Dioxide 24 mmol/L (22-30); Chloride 112 mmol/L (98-107); Globulin 3.2 g/dL; Glucose 145 mg/dL (74-99); Non-African American GFR(CKD) >90 (>60 ml/min/1.73 sqM); Potassium 4.5 mmol/L (3.5-5.1); Sodium 143 mmol/L (137-145); Total Bilirubin 0.9 mg/dL (0.2-1.3)
[2021-05-18 11:45] LABS: Glucose,Whole Blood 116 mg/dL (75-99)
[2021-05-18] MEDS: BARICITINIB 2 MG TABLET PO SCH (12:18)
--- NOTE | 2021-05-18 13:29 | P.PN ---
Subjective Progress Note Date: 05/18/21 This is a 41-year-old male patient with a history of diabetes mellitus, obesity, vaping. He has a 10 day history of fever, poor appetite, shortness of breath cough and congestion that has been progressively worse. He tested positive for COVID-19 on 05/05/2021 as an inmate at the [facility]. He was brought into the emergency room today for progressing symptoms and was found to be hypoxemic with O2 saturation 86% on room air. Chest x-ray reveals bilateral patchy airspace disease. White count 7.1. Reglan 17.6. Platelets 136. Lymphocytes 0.3. D-dimer 0.59. Sodium 139. Potassium 3.9. Creatinine 0.65. Glucose 171. Lactic acid 1.4. Ferritin 1834. AST 34. ALT 31. LDH 628. C-r eactive protein 24.1. Pro-calcitonin 0.46. He's been initiated on Decadron, Lovenox, vitamin supplements. He is seen on the regular medical floor. He sitting up in bed. Awake and alert in no acute distress. He is maintaining O2 saturations 89-90% on 5 L/m per nasal cannula. Progress note dated 05/16/2021. 41-year-old male, with a history of diabetes and obesity. The patient wasn't inmate at [facility]. He was brought to the hospital with increasing shortness of breath, and discovered to have coronavirus associated pneumonia. Currently, he is on nonrebreather mask, and nasal cannula high flow, and 15 L/m. He states that he feels okay when he sitting still, but becomes very short of breath when he exerts himself. Because of his worsening oxygenation, today we started him on HEVER. No new laboratory data on this patient. Chest x-ray from yesterday is reviewed. Progress note dated 05/17/2021. 41-year-old male, with a history of diabetes mellitus and obesity. The patient was seen yesterday and again seen today, in room 484. He is an inmate at [facility]. He was brought in with coronavirus associated pneumonia, and increasing shortness of breath. He remains on a partial rebreather mask, and 15 L high flow nasal O2. An officer is in the room with him. He is laying flat in bed. Does not appear to be in any significant distress. Currently labs include a white count 7.3, he will be 16.1, hematocrit 49.3, platelet count 180,000. D- dimer is 0.66. Sodium 145, potassium 4.4, chlorides 113, CO2 26, normal anion gap, BUN 22, and creatinine 0.82. No recent chest x-ray, the last one being done on May 15. The patient is seen today 05/18/2021 in follow-up on the regular medical floor. He is currently sitting up in bed. Awake and alert in no acute distress. He is currently requiring 15 L high flow nasal cannula plus a partial rebreather mask to maintain O2 saturation at 91% currently. He is afebrile. Hemodynamically stable. Somewhat bradycardic. White count 6.9. Hemoglobin 16.1. Lymphocytes 0.6. D-dimer 0.90. Sodium 143. Potassium 4.5. Creatinine 0.73. C-reactive protein 1.9. He is continued on Baricitinib, Decadron, Lovenox, vitamin supplements. 0.9 normal saline at 75 ML's per hour. Objective - Vital Signs Vital signs: Vital Signs Temp 98.7 F 05/18/21 10:00 Pulse 50 L 05/18/21 10:00 Resp 17 05/18/21 10:00 BP 134/80 05/18/21 10:00 Pulse Ox 91 L 05/18/21 10:00 Intake & Output 05/17/21 05/18/21 05/18/21 18:59 06:59 18:59 Intake Total 600 836 Output Total 500 Balance 600 -500 836 Intake: Intake, IV Titration 600 600 Amount Sodium Chloride 0.9% 1, 600 600 000 ml @ 75 mls/hr IV . [id number] Rx#:[id number] Oral 236 Output: Urine 500 Other: # Voids 1 - Exam GENERAL EXAM: Alert, 41-year-old male patient on 15 L high flow nasal cannula plus a partial rebreather mask with O2 saturation at 81%, fairly comfortable in no apparent distress. HEAD: Normocephalic. EYES: Normal reaction of pupils, equal size. NOSE: Clear with pink turbinates. THROAT: No erythema or exudates. NECK: No masses, no JVD. CHEST: No chest wall deformity. LUNGS: Equal air entry with crackles in the bilateral posterior bases. CVS: S1 and S2 normal with no audible murmur, regular rhythm. ABDOMEN: No hepatosplenomegaly, normal bowel sounds, no guarding or rigidity. SPINE: No scoliosis or deformity SKIN: No rashes CENTRAL NERVOUS SYSTEM: No focal deficits, tone is normal in all 4 extremities. EXTREMITIES: There is no peripheral edema. No clubbing, no cyanosis. Peripheral pulses are intact. - Labs CBC & Chem 7: 05/18/21 07:53 05/18/21 07:53 Labs: Abnormal Lab Results - Last 24 Hours (Table) 05/17/21 05/18/21 05/18/21 Range/Units 16:22 07:12 07:53 Lymphocytes # (1.0-4.8) k/uL D-Dimer 0.90 H (<0.60) mg/L FEU Chloride (98-107) mmol/L BUN (9-20) mg/dL Glucose (74-99) mg/dL POC Glucose (mg/dL) 134 H 137 H (75-99) mg/dL C-Reactive Protein (<1.0) mg/dL Total Protein (6.3-8.2) g/dL Albumin (3.5-5.0) g/dL 05/18/21 05/18/21 05/18/21 Range/Units 07:53 07:53 07:53 Lymphocytes # 0.6 L (1.0-4.8) k/uL D-Dimer (<0.60) mg/L FEU Chloride 112 H (98-107) mmol/L BUN 22 H (9-20) mg/dL Glucose 145 H (74-99) mg/dL POC Glucose (mg/dL) (75-99) mg/dL C-Reactive Protein 1.9 H (<1.0) mg/dL Total Protein 6.0 L (6.3-8.2) g/dL Albumin 2.8 L (3.5-5.0) g/dL 05/18/21 Range/Units 11:40 Lymphocytes # (1.0-4.8) k/uL D-Dimer (<0.60) mg/L FEU Chloride (98-107) mmol/L BUN (9-20) mg/dL Glucose (74-99) mg/dL POC Glucose (mg/dL) 116 H (75-99) mg/dL C-Reactive Protein (<1.0) mg/dL Total Protein (6.3-8.2) g/dL Albumin (3.5-5.0) g/dL Assessment and Plan Assessment: 1 Acute hypoxemic respiratory failure secondary to acute COVID-19 pneumonia. Diagnosed on 05/05/2021. Outside the window for Remdesivir. Not vaccinated. Initiated on Baricitinib. 2 Elevated inflammatory markers secondary to above 3 Obesity 4 History of AP 5 Diabetes mellitus 6 Currently incarcerated with multiple inmates with positive COVID-19 infection Plan: The patient was seen and evaluated by Dr. Medina Labs reviewed Continue Lovenox, Decadron, vitamin supplements Continue Baricitinib Currently on 15 L high flow plus a nonrebreather We'll continue to titrate the FiO2 as tolerated Follow-up chest x-ray and inflammatory markers in the a.m. We'll continue to follow and make further recommendations based on his clinical status I, the cosigning physician, performed a history & physical examination of the patient. Lungs sounds with crackles in the bilateral bases. Maintaining good O2 saturations in the 90s on 15 L/m per high flow nasal cannula has a nonrebreather mask. I discussed the assessment and plan of care with my nurse practitioner, Ami Woodard. I attest to the above note as dictated by her.
[2021-05-18 16:47] LABS: Glucose,Whole Blood 139 mg/dL (75-99)
--- NOTE | 2021-05-18 20:20 | P.PN ---
Progress Note - Text Progress Note Date: 05/18/21 Chief Complaint: Short of breath This is a pleasant 41-year-old patient of Dr. Lio Mendes. Patient has a prior history of diabetes. He lost weight and use of medications. No diet control. [facility]. Has been an outbreak in the [facility] of COVID-19. Patient has not taken vaccination for COVID-19. May 05 she started off getting symptoms the form of a fever. Progressively patient is become more short of breath and coughing. Some change in taste and decrease in smell. Having a mild headache. Tired rundown. Poor appetite. Patient became hypoxic is now admitted. He is outside the hospital guidelines window for IV Remdesivir. Started with IV prednisone. May 16: Patient got up to 15 L of high flow cannula. With a nonrebreather. The mask is not fitting well. I've asked the nurse to try to adjust that. Not much of an appetite. Tired. We'll have the patient sit up in a chair May 17: Remains on 15 L high flow cannula. An nonrebreather. Tired. Eating about 50%. Shortness of breath. In bed. Baricitinib started yesterday May 18: Reclining in bed. Tired. Short of breath. 15 L high flow nasal cannula plus a partial rebreather. Oral intake variable. Review of systems: Was done for constitutional, cardiovascular, GI, pulmonary. relevant finding as above Active Medications Acetaminophen (Acetaminophen Tab 325 Mg Tab) 650 mg PO Q6HR PRN PRN Reason: Mild Pain or Fever > 100.5 Last Admin: 05/17/21 20:13 Dose: 650 mg Documented by: Albuterol Sulfate (Albuterol Hfa Inhaler) 2 puff INHALATION RT-QID [facility] Last Admin: 05/18/21 16:05 Dose: 2 puff Documented by: Ascorbic Acid (Ascorbic Acid 500 Mg Tab) 1,000 mg PO DAILY [facility] Last Admin: 05/18/21 08:10 Dose: 1,000 mg Documented by: Baricitinib (Baricitinib 2 Mg Tablet) 4 mg PO DAILY@1200 [facility] Stop: 05/29/21 12:01 Last Admin: 05/18/21 12:18 Dose: 4 mg Documented by: Cholecalciferol (Cholecalciferol 25 Mcg (1000 Iu) Tablet) 100 mcg PO DAILY [facility] Last Admin: 05/18/21 08:10 Dose: 100 mcg Documented by: Dexamethasone (Dexamethasone 2 Mg Tab) 6 mg PO DAILY [facility] Last Admin: 05/18/21 08:09 Dose: 6 mg Documented by: Enoxaparin Sodium (Enoxaparin 40 Mg/0.4 Ml Syringe) 40 mg SQ DAILY [facility] Last Admin: 05/18/21 08:09 Dose: 40 mg Documented by: Sodium Chloride (Saline 0.9%) 1,000 mls @ 75 mls/hr IV .[id number] [facility] Last Admin: 05/18/21 08:17 Dose: 75 mls/hr Documented by: Insulin Aspart (Insulin Aspart (Novolog) 100 Unit/Ml Vial) 0 unit SQ AC-TID [facility]; Protocol Last Admin: 05/18/21 17:10 Dose: 1 unit Documented by: Naloxone HCl (Naloxone 0.4 Mg/Ml 1 Ml Vial) 0.2 mg IV Q2M PRN PRN Reason: Opioid Reversal Pantoprazole Sodium (Pantoprazole 40 Mg Tablet) 40 mg PO DAILY [facility] Last Admin: 05/18/21 08:10 Dose: 40 mg Documented by: Zinc Sulfate (Zinc Sulfate 220 Mg Cap) 220 mg PO DAILY [facility] Last Admin: 05/18/21 08:10 Dose: 220 mg Documented by: Past medical history to include: Diabetes, currently not on any medications. Social history: Patient is finished to do worse nocturnal ago. Lives with his mother. 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 Family history: Hypertension Physical examination: VITAL SIGNS: 98.9, 61, 16, 150/104, 95% on 15 L high flow cannula. Nonrebreather. GENERAL: reclining in bed, awake, short of breath. LUNGS: Respiratory rate increased, PSYCH: Alert and oriented x3; mood and affect anxious NEUROLOGICAL: Cranial nerves grossly intact; no facial asymmetry, moving all 4 limbs Rest of exam as per pulmonary and nursing INVESTIGATIONS, reviewed in the clinical context: May 18: WBC 6.9 hemoglobin 16.1 d-dimer 0.9 potassium 4.5. 22 creatinine 0.73 CRP 1.9 May 17: White count 7.3 hemoglobin 16.1 potassium 4.4 creatinine 0.82 d- dimer 0.66 glucose 156 WBC 7.1 hemoglobin 7.6 platelets 136 lymphocytes 0.3 potassium 3.9 sodium 139 creatinine 0.65 d-dimer 0.59 Glucose 243 plasma lactic acid 2.8 troponin I less than 0.012 CRP 24.1 pro- calcitonin 0.46 Chest x-ray film personally reviewed by me-bilateral infiltrates EKG tracing personally reviewed by me-normal sinus rhythm. Rate 86 Assessment and plan: -COVID 19 pneumonitis the symptoms starting 10 days ago. Progressively getting worse. With hypoxia. Nonvaccinated for COVID-19: Not improving Dexamethasone 6, subcu Lovenox, supplemented syncopal vitamin C vitamin D. Baricitinib started yesterday -Acute hypoxic respiratory failure from COVID 19 pneumonitis: Not improving Partial nonrebreather with high flow cannula 15 L. Incentive spirometry. -Obesity BMI 39.2 Weight loss measures -Diabetes mellitus type 2, patient been off medications. Currently uncontrolled with hyperglycemia. Secondary to steroids Levemir 14 units subcu daily at bedtime. Sliding scale insulin. -Thrombocytopenia mild with COVID 19 pneumonitis Follow CBC -Lymphocytopenia From COVID 19 -Lactic acidosis, type II from fluid deficit IV fluids - Dexamethasone, Baricitinib, subcu Lovenox, vitamin C vitamin D. Oxygen supplement 15 L. Incentive spirometry. Care was discussed with the patient
--- NOTE | 2021-05-19 | PN ---
PROGRESS NOTE DATE OF SERVICE: 05/18/2021 REASON FOR FOLLOWUP: COVID-19 pneumonia. INTERVAL HISTORY: Patient is afebrile. The patient remains to be on a non-rebreather. Denies any worsening shortness of breath or cough. He did have a cough, not bringing up any sputum. Some nausea. No vomiting. No abdominal pain. No diarrhea. PHYSICAL EXAMINATION: Blood pressure 136/83, pulse of 50, temperature of 98.9. He is 93% on 15 L high-flow oxygen. General description is a middle-aged male lying in bed in no distress. Respiratory system: Unlabored breathing, decreased intensity of breath sounds. No wheeze. Heart S1, S2. Regular rate and rhythm. Abdomen soft. No tenderness. LABS: Hemoglobin 16.1, white count 6.9, creatinine 0.73. DIAGNOSTIC IMPRESSION AND PLAN: Patient with acute COVID-19 pneumonia. This patient did have worsening respiratory status. Patient is currently on baricitinib, dexamethasone, Lovenox, zinc and ascorbic acid to continue along with respiratory support and monitor clinical course closely. MMODL / IJN: [id number] /
[2021-05-19] MEDS: SODIUM CHLORIDE 0.9% 1,000 ML IV SCH ×2 (01:26→12:39)
[2021-05-19 06:57] LABS: Basophils % (A) 0 %; Eosinophils % (A) 0 %; HCT 48.6 % (39.0-53.0); HGB 16.3 gm/dL (13.0-17.5); Lymphocytes # (A) 0.7 k/uL (1.0-4.8); Lymphocytes % (A) 9 %; MCH 31.2 pg (25.0-35.0); MCHC 33.6 g/dL (31.0-37.0); MCV 92.7 fL (80.0-100.0); Mean Platelet Volume 7.9; Monocytes # (A) 0.5 k/uL (0-1.0); Monocytes % (A) 6 %; Neutrophils % (A) 83 %; Platelet Count 190 k/uL (150-450); RBC 5.24 m/uL (4.30-5.90); RDW 11.7 % (11.5-15.5); WBC 7.3 k/uL (3.8-10.6)
[2021-05-19 06:57] LABS: Glucose,Whole Blood 129 mg/dL (75-99)
[2021-05-19 07:07] LABS: ALT 44 U/L (4-49); AST 29 U/L (17-59); African American GFR (CKD) >90 (>60 ml/min/1.73 sqM); Albumin 2.8 g/dL (3.5-5.0); Albumin/Globulin Ratio 0.9; Alkaline Phosphatase 40 U/L (38-126); Anion Gap 6 mmol/L; Blood Urea Nitrogen 18 mg/dL (9-20); Calcium 8.6 mg/dL (8.4-10.2); Carbon Dioxide 23 mmol/L (22-30); Chloride 109 mmol/L (98-107); Globulin 3.1 g/dL; Glucose 155 mg/dL (74-99); LDH 759 U/L (313-618); Non-African American GFR(CKD) >90 (>60 ml/min/1.73 sqM); Potassium 4.4 mmol/L (3.5-5.1); Sodium 138 mmol/L (137-145); Total Bilirubin 0.9 mg/dL (0.2-1.3); Total Protein 5.9 g/dL (6.3-8.2)
--- NOTE | 2021-05-19 07:57 | XR ---
EXAMINATION TYPE: XR chest 1V portable DATE OF EXAM: 05/19/2021 Comparison: 05/15/2021 Clinical History: 41 year-old male CoVID pneumonia Findings: Heart and lungs are normal in size. Patchy bilateral interstitial opacities. No significant change. N o pleural effusion. Impression: Continued patchy bilateral COVID pneumonia.
[2021-05-19] MEDS: ALBUTEROL HFA INHALER INHALATION SCH ×4 (08:01→20:22)
[2021-05-19] MEDS: INSULIN ASPART (NovoLOG) 100 UNIT/ML VIAL SQ SCH ×3 (08:04→17:26)
[2021-05-19] MEDS: ZINC SULFATE 220 MG CAP PO SCH (08:06)
[2021-05-19] MEDS: ASCORBIC ACID 500 MG TAB PO SCH (08:06)
[2021-05-19] MEDS: ENOXAPARIN 40 MG/0.4 ML SYRINGE SQ SCH (08:06)
[2021-05-19] MEDS: PANTOPRAZOLE 40 MG TABLET PO SCH (08:06)
[2021-05-19] MEDS: CHOLECALCIFEROL 25 MCG (1000 IU) TABLET PO SCH (08:06)
[2021-05-19] MEDS: dexAMETHasone 2 MG TAB PO SCH (08:06)
[2021-05-19] MEDS: BARICITINIB 2 MG TABLET PO SCH (08:06)
[2021-05-19 11:50] LABS: Glucose,Whole Blood 134 mg/dL (75-99)
--- NOTE | 2021-05-19 13:15 | P.PN ---
Progress Note - Text Progress Note Date: 05/19/21 Chief Complaint: Short of breath This is a pleasant 41-year-old patient of Dr. Lio Mendes. Patient has a prior history of diabetes. He lost weight and use of medications. No diet control. [facility] for [facility]. Has been an outbreak in the prison of COVID-19. Patient has not taken vaccination for COVID-19. May 05 she started off getting symptoms the form of a fever. Progressively patient is become more short of breath and coughing. Some change in taste and decrease in smell. Having a mild headache. Tired rundown. Poor appetite. Patient became hypoxic is now admitted. He is outside the hospital guidelines window for IV Remdesivir. Started with IV prednisone. May 16: Patient got up to 15 L of high flow cannula. With a nonrebreather. The mask is not fitting well. I've asked the nurse to try to adjust that. Not much of an appetite. Tired. We'll have the patient sit up in a chair May 17: Remains on 15 L high flow cannula. An nonrebreather. Tired. Eating about 50%. Shortness of breath. In bed. Baricitinib started yesterday May 18: Reclining in bed. Tired. Short of breath. 15 L high flow nasal cannula plus a partial rebreather. Oral intake variable. May 19: Tired. Reclining in bed. On 15 L nasal cannula. Oral intake variable. Short of breath. Have asked the patient to sit up in a chair as much as possible. On Baricitinib. Dexamethasone. Review of systems: Was done for constitutional, cardiovascular, GI, pulmonary. relevant finding as above Active Medications Acetaminophen (Acetaminophen Tab 325 Mg Tab) 650 mg PO Q6HR PRN PRN Reason: Mild Pain or Fever > 100.5 Last Admin: 05/17/21 20:13 Dose: 650 mg Documented by: Albuterol Sulfate (Albuterol Hfa Inhaler) 2 puff INHALATION RT-QID [facility] Last Admin: 05/19/21 11:22 Dose: 2 puff Documented by: Ascorbic Acid (Ascorbic Acid 500 Mg Tab) 1,000 mg PO DAILY [facility] Last Admin: 05/19/21 08:06 Dose: 1,000 mg Documented by: Baricitinib (Baricitinib 2 Mg Tablet) 4 mg PO DAILY@1200 [facility] Stop: 05/29/21 12:01 Last Admin: 05/19/21 08:06 Dose: 4 mg Documented by: Cholecalciferol (Cholecalciferol 25 Mcg (1000 Iu) Tablet) 100 mcg PO DAILY [facility] Last Admin: 05/19/21 08:06 Dose: 100 mcg Documented by: Dexamethasone (Dexamethasone 2 Mg Tab) 6 mg PO DAILY [facility] Last Admin: 05/19/21 08:06 Dose: 6 mg Documented by: Enoxaparin Sodium (Enoxaparin 40 Mg/0.4 Ml Syringe) 40 mg SQ DAILY [facility] Last Admin: 05/19/21 08:06 Dose: 40 mg Documented by: Sodium Chloride (Saline 0.9%) 1,000 mls @ 75 mls/hr IV .[id number] [facility] Last Admin: 05/19/21 12:39 Dose: Not Given Documented by: Insulin Aspart (Insulin Aspart (Novolog) 100 Unit/Ml Vial) 0 unit SQ AC-TID [facility]; Protocol Last Admin: 05/19/21 12:38 Dose: 1 unit Documented by: Naloxone HCl (Naloxone 0.4 Mg/Ml 1 Ml Vial) 0.2 mg IV Q2M PRN PRN Reason: Opioid Reversal Pantoprazole Sodium (Pantoprazole 40 Mg Tablet) 40 mg PO DAILY [facility] Last Admin: 05/19/21 08:06 Dose: 40 mg Documented by: Zinc Sulfate (Zinc Sulfate 220 Mg Cap) 220 mg PO DAILY [facility] Last Admin: 05/19/21 08:06 Dose: 220 mg Documented by: Past medical history to include: Diabetes, currently not on any medications. Social history: Patient is finished to do worse nocturnal ago. Lives with his mother. 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 LUNGS: Respiratory rate increased, PSYCH: Alert and oriented x3; mood and affect anxious NEUROLOGICAL: Cranial nerves grossly intact; no facial asymmetry, moving all 4 limbs Rest of exam as per pulmonary and nursing INVESTIGATIONS, reviewed in the clinical context: May 19: WBC 7.3 hemoglobin 16.3 platelets 190 d-dimer 0.92 potassium 4.4 creatinine 0.69 Accu-Cheks 1 5120 03/16/1933 May 18: WBC 6.9 hemoglobin 16.1 d-dimer 0.9 potassium 4.5. 22 creatinine 0.73 CRP 1.9 May 17: White count 7.3 hemoglobin 16.1 potassium 4.4 creatinine 0.82 d- dimer 0.66 glucose 156 WBC 7.1 hemoglobin 7.6 platelets 136 lymphocytes 0.3 potassium 3.9 sodium 139 creatinine 0.65 d-dimer 0.59 Glucose 243 plasma lactic acid 2.8 troponin I less than 0.012 CRP 24.1 pro- calcitonin 0.46 Chest x-ray film personally reviewed by me-bilateral infiltrates EKG tracing personally reviewed by me-normal sinus rhythm. Rate 86 Assessment and plan: -COVID 19 pneumonitis the symptoms starting 10 days ago. Progressively getting worse. With hypoxia. Nonvaccinated for COVID-19: Not improving Dexamethasone 6, subcu Lovenox, supplemented syncopal vitamin C vitamin D. Baricitinib started yesterday -Acute hypoxic respiratory failure from COVID 19 pneumonitis: Not improving Partial nonrebreather with high flow cannula 15 L. Incentive spirometry. -Obesity BMI 39.2 Weight loss measures -Diabetes mellitus type 2, patient been off medications. Currently uncontrolled with hyperglycemia. Secondary to steroids Levemir 14 units subcu daily at bedtime. Sliding scale insulin. -Thrombocytopenia mild with COVID 19 pneumonitis Follow CBC -Lymphocytopenia From COVID 19 -Lactic acidosis, type II from fluid deficit IV fluids - Dexamethasone, Baricitinib, subcu Lovenox, Oxygen supplement 15 L. Incentive spirometry. patient to sit up in a chair. Follow
--- NOTE | 2021-05-19 14:25 | P.PN ---
Subjective Progress Note Date: 05/19/21 Principal diagnosis: Coronavirus associated pneumonia. This is a 41-year-old male patient with a history of diabetes mellitus, obesity, vaping. He has a 10 day history of fever, poor appetite, shortness of breath cough and congestion that has been progressively worse. He tested positive for COVID-19 on 05/05/2021 as an inmate at the [facility]. He was brought into the emergency room today for progressing symptoms and was found to be hypoxemic with O2 saturation 86% on room air. Chest x-ray reveals bilateral patchy airspace disease. White count 7.1. Reglan 17.6. Platelets 136. Lymphocytes 0.3. D-dimer 0.59. Sodium 139. Potassium 3.9. Creatinine 0.65. Glucose 171. Lactic acid 1.4. Ferritin 1834. AST 34. ALT 31. LDH 628. C- reactive protein 24.1. Pro-calcitonin 0.46. He's been initiated on Decadron, Lovenox, vitamin supplements. He is seen on the regular medical floor. He sitting up in bed. Awake and alert in no acute distress. He is maintaining O2 saturations 89-90% on 5 L/m per nasal cannula. Progress note dated 05/16/2021. 41-year-old male, with a history of diabetes and obesity. The patient wasn't inmate at [facility]. He was brought to the hospital with increasing shortness of breath, and discovered to have coronavirus associated pneumonia. Currently, he is on nonrebreather mask, and nasal cannula high flow, and 15 L/m. He states that he feels okay when he sitting still, but becomes very short of breath when he exerts himself. Because of his worsening oxygenation, today we started him on HEVER. No new laboratory data on this patient. Chest x-ray from yesterday is reviewed. Progress note dated 05/17/2021. 41-year-old male, with a history of diabetes mellitus and obesity. The patient was seen yesterday and again seen today, in room 484. He is an inmate at [facility]. He was brought in with coronavirus associated pneumonia, and increasing shortness of breath. He remains on a partial rebreather mask, and 15 L high flow nasal O2. An officer is in the room with him. He is laying flat in bed. Does not appear to be in any significant distress. Currently labs include a white count 7.3, he will be 16.1, hematocrit 49.3, platelet count 180,000. D- dimer is 0.66. Sodium 145, potassium 4.4, chlorides 113, CO2 26, normal anion gap, BUN 22, and creatinine 0.82. No recent chest x-ray, the last one being done on May 15. Progress note dated 05/19/2021. 41-year-old male, with history of diabetes mellitus and obesity. The patient has been seen for the last number of days, because of coronavirus associated pneumonia. He is in room 484. He is an inmate from the local halfway. The police officers in the room with him at all times. The patient currently remains on 15 L high flow nasal O2, and a partial rebreather mask. The patient is also getting saline, at 75 mL an hour. The patient states he feels about the same today as he did yesterday. No better, yet no worse. He is coughing. Shortness of breath is worse on exertion. He is not producing any phlegm. There is no fever, chills, chest pain, nausea, vomiting, diarrhea, or abdominal pain. White count 7.3, he will be 16.3, hematocrit 48.6, platelet count 190,000. D-dimer is 0.92. Sodium 138, potassium 4.4, chlorides 109, CO2 23, anion gap 6, BUN 18, and creatinine 0.69. C-reactive protein is 1.6. Chest x-ray from today, shows diffuse bilateral left greater than right infiltrates. Objective - Vital Signs Vital signs: Vital Signs Temp 99 F 05/19/21 09:37 Pulse 47 L 05/19/21 09:37 Resp 18 05/19/21 09:37 BP 126/80 05/19/21 09:37 Pulse Ox 92 L 05/19/21 09:37 Intake & Output 05/18/21 05/19/21 05/19/21 18:59 06:59 18:59 Intake Total 836 Output Total 800 Balance 836 -800 Intake: Intake, IV Titration 600 Amount Sodium Chloride 0.9% 1, 600 000 ml @ 75 mls/hr IV . [id number] [facility] Rx#:[id number] Oral 236 Output: Urine 800 Other: # Voids 2 # Bowel Movements 1 - Exam Oriented 3, mild tachypnea, no audible wheezing, use of accessory muscles, or conversational dyspnea. HEENT examination is grossly unremarkable. Neck supple. Full range of motion. No adenopathy thyromegaly or neck vein distention. Cardiovascular examination reveals regular rhythm rate. S1-S2 normal. No S3 or S4. No discernible murmur noted. Heart sounds are distant. Heart rate 47 bpm. Lungs reveal diffuse bilateral rhonchi. Mild crackles are noted. No wheezes. Breath sounds are equal bilaterally. Saturations are between 90 and 92%. Currently on a partial rebreather mask, and 15 L high flow nasal cannula. Abdomen soft bowel sounds are heard. No masses or tenderness. Extremities are intact. No cyanosis clubbing or edema. Skin is without rash or lesion. Neurologic examination is brief but nonfocal. - Labs CBC & Chem 7: 05/19/21 06:32 05/19/21 06:32 Labs: Abnormal Lab Results - Last 24 Hours (Table) 05/18/21 05/19/21 05/19/21 Range/Units 16:45 06:32 06:32 Lymphocytes # (1.0-4.8) k/uL D-Dimer 0.92 H (<0.60) mg/L FEU Chloride (98-107) mmol/L Glucose (74-99) mg/dL POC Glucose (mg/dL) 139 H (75-99) mg/dL Lactate Dehydrogenase (313-618) U/L C-Reactive Protein 1.6 H (<1.0) mg/dL Total Protein (6.3-8.2) g/dL Albumin (3.5-5.0) g/dL 05/19/21 05/19/21 05/19/21 Range/Units 06:32 06:32 06:54 Lymphocytes # 0.7 L (1.0-4.8) k/uL D-Dimer (<0.60) mg/L FEU Chloride 109 H (98-107) mmol/L Glucose 155 H (74-99) mg/dL POC Glucose (mg/dL) 129 H (75-99) mg/dL Lactate Dehydrogenase 759 H (313-618) U/L C-Reactive Protein (<1.0) mg/dL Total Protein 5.9 L (6.3-8.2) g/dL Albumin 2.8 L (3.5-5.0) g/dL 05/19/21 Range/Units 11:49 Lymphocytes # (1.0-4.8) k/uL D-Dimer (<0.60) mg/L FEU Chloride (98-107) mmol/L Glucose (74-99) mg/dL POC Glucose (mg/dL) 134 H (75-99) mg/dL Lactate Dehydrogenase (313-618) U/L C-Reactive Protein (<1.0) mg/dL Total Protein (6.3-8.2) g/dL Albumin (3.5-5.0) g/dL Assessment and Plan Assessment: Acute hypoxemic respiratory failure secondary to coronavirus associated pneumonia. Elevated inflammatory markers secondary to coronavirus infection. Obesity. History of diabetes mellitus. Plan: Plan dated 05/16/2021. The patient seems to be reasonably stable, though becomes very short of breath with any activity. He remains on a nonrebreather mask, and 15 L high flow nasal cannula. Today, in addition to the current medications, we added HEVER. His other medications including albuterol inhaler, vitamin C, vitamin D3, and zinc, as well as Decadron, and Lovenox. Additional recommendations and suggestions are forthcoming. We will continue to follow the patient and make recommendations where appropriate. Plan dated 05/17/2021. The patient appears to be reasonably stable today. He is receiving all appropriate medications. Yesterday, he was on a nonrebreather mass. Today's on a partial rebreather mask. He is receiving normal medications including albuterol inhaler, vitamin C, vitamin D3, zinc, Decadron, Lovenox, and HEVER. We will continue to follow make recommendations where appropriate. Prognosis is guarded. The patient is likely a bit better today than he was yesterday. I did tell him to move about in bed when he is laying in bed. Plan dated 05/19/2021. The patient remains on vitamin C, vitamin D3, and zinc. In addition, the patient is on Decadron, and Lovenox. Finally, the patient is taking HEVER, 4 mg a day, for total of 14 days maximum. The patient's also on a albuterol inhaler. Additional recommendations and suggestions are forthcoming. Prognosis is guarded. I did tell the patient and make sure that when he is in bed, that he l ays right side down, left side down, supine, and even prone if possible. Time with Patient: Less than 30
[2021-05-19 16:19] LABS: Glucose,Whole Blood 183 mg/dL (75-99)
--- NOTE | 2021-05-19 22:46 | PN ---
PROGRESS NOTE DATE OF SERVICE: 05/19/2021 REASON FOR FOLLOWUP: COVID-19 pneumonia. INTERVAL HISTORY: The patient is afebrile, breathing slightly comfortably, still requiring non- rebreather. The patient denies having any chest pain. He did have a cough; no worsening sputum production. No abdominal pain or diarrhea. PHYSICAL EXAMINATION: Blood pressure 135/88 with a pulse of 72, temperature 97.8. He is 94% on 15 L high-flow oxygen. General description is a middle-aged male lying in bed in no distress. RESPIRATORY SYSTEM: Unlabored breathing. Decreased intensity of breath sounds. No wheeze. HEART: S1, S2. Regular rate and rhythm. ABDOMEN: Soft. No tenderness. LABS: Hemoglobin is 16, white count 7.3, BUN of 18, creatinine 0.69. DIAGNOSTIC IMPRESSION AND PLAN: Patient with acute respiratory failure secondary to COVID-19 infection. Patient's condition remains critical. X-rays revealed worsening. Patient to continue with dexamethasone, Lovenox, zinc and ascorbic acid along with respiratory support and monitor clinical course closely. MMODL / IJN: [id number] /
[2021-05-20] MEDS: SODIUM CHLORIDE 0.9% 1,000 ML IV SCH ×3 (03:30→22:18)
[2021-05-20 07:03] LABS: Glucose,Whole Blood 147 mg/dL (75-99)
[2021-05-20] MEDS: ALBUTEROL HFA INHALER INHALATION SCH ×4 (08:06→21:20)
[2021-05-20] MEDS: INSULIN ASPART (NovoLOG) 100 UNIT/ML VIAL SQ SCH ×3 (08:42→18:14)
[2021-05-20] MEDS: CHOLECALCIFEROL 25 MCG (1000 IU) TABLET PO SCH (08:43)
[2021-05-20] MEDS: BARICITINIB 2 MG TABLET PO SCH (08:43)
[2021-05-20] MEDS: ENOXAPARIN 40 MG/0.4 ML SYRINGE SQ SCH (08:43)
[2021-05-20] MEDS: dexAMETHasone 2 MG TAB PO SCH (08:43)
[2021-05-20] MEDS: ZINC SULFATE 220 MG CAP PO SCH (08:43)
[2021-05-20] MEDS: ACETAMINOPHEN TAB 325 MG TAB PO PRN (08:43)
[2021-05-20] MEDS: ASCORBIC ACID 500 MG TAB PO SCH (08:43)
[2021-05-20] MEDS: PANTOPRAZOLE 40 MG TABLET PO SCH (08:44)
[2021-05-20 09:11] LABS: Basophils % (A) 0 %; Eosinophils % (A) 0 %; HCT 49.4 % (39.0-53.0); HGB 16.6 gm/dL (13.0-17.5); Lymphocytes # (A) 0.5 k/uL (1.0-4.8); Lymphocytes % (A) 6 %; MCH 30.9 pg (25.0-35.0); MCHC 33.5 g/dL (31.0-37.0); MCV 92.2 fL (80.0-100.0); Mean Platelet Volume 7.8; Monocytes # (A) 0.4 k/uL (0-1.0); Monocytes % (A) 6 %; Neutrophils # (A) 6.3 k/uL (1.3-7.7); Neutrophils % (A) 87 %; Platelet Count 193 k/uL (150-450); RBC 5.36 m/uL (4.30-5.90); RDW 11.7 % (11.5-15.5); WBC 7.2 k/uL (3.8-10.6)
[2021-05-20 09:25] LABS: ALT 52 U/L (4-49); AST 26 U/L (17-59); African American GFR (CKD) >90 (>60 ml/min/1.73 sqM); Albumin 2.9 g/dL (3.5-5.0); Alkaline Phosphatase 41 U/L (38-126); Anion Gap 6 mmol/L; Blood Urea Nitrogen 16 mg/dL (9-20); Calcium 8.7 mg/dL (8.4-10.2); Carbon Dioxide 26 mmol/L (22-30); Chloride 105 mmol/L (98-107); Glucose 154 mg/dL (74-99); Non-African American GFR(CKD) >90 (>60 ml/min/1.73 sqM); Potassium 4.3 mmol/L (3.5-5.1); Sodium 137 mmol/L (137-145); Total Bilirubin 0.9 mg/dL (0.2-1.3); Total Protein 5.9 g/dL (6.3-8.2)
[2021-05-20 11:41] LABS: Glucose,Whole Blood 219 mg/dL (75-99)
--- NOTE | 2021-05-20 15:34 | P.PN ---
Subjective Progress Note Date: 05/20/21 This is a 41-year-old male patient with a history of diabetes mellitus, obesity, vaping. He has a 10 day history of fever, poor appetite, shortness of breath cough and congestion that has been progressively worse. He tested positive for COVID-19 on 05/05/2021 as an inmate at the [facility]. He was brought into the emergency room today for progressing symptoms and was found to be hypoxemic with O2 saturation 86% on room air. Chest x-ray reveals bilateral patchy airspace disease. White count 7.1. Reglan 17.6. Platelets 136. Lymphocytes 0.3. D-dimer 0.59. Sodium 139. Potassium 3.9. Creatinine 0.65. Glucose 171. Lactic acid 1.4. Ferritin 1834. AST 34. ALT 31. LDH 628. C-r eactive protein 24.1. Pro-calcitonin 0.46. He's been initiated on Decadron, Lovenox, vitamin supplements. He is seen on the regular medical floor. He sitting up in bed. Awake and alert in no acute distress. He is maintaining O2 saturations 89-90% on 5 L/m per nasal cannula. Progress note dated 05/16/2021. 41-year-old male, with a history of diabetes and obesity. The patient wasn't inmate at [facility]. He was brought to the hospital with increasing shortness of breath, and discovered to have coronavirus associated pneumonia. Currently, he is on nonrebreather mask, and nasal cannula high flow, and 15 L/m. He states that he feels okay when he sitting still, but becomes very short of breath when he exerts himself. Because of his worsening oxygenation, today we started him on HEVER. No new laboratory data on this patient. Chest x-ray from yesterday is reviewed. Progress note dated 05/17/2021. 41-year-old male, with a history of diabetes mellitus and obesity. The patient was seen yesterday and again seen today, in room 484. He is an inmate at [facility]. He was brought in with coronavirus associated pneumonia, and increasing shortness of breath. He remains on a partial rebreather mask, and 15 L high flow nasal O2. An officer is in the room with him. He is laying flat in bed. Does not appear to be in any significant distress. Currently labs include a white count 7.3, he will be 16.1, hematocrit 49.3, platelet count 180,000. D- dimer is 0.66. Sodium 145, potassium 4.4, chlorides 113, CO2 26, normal anion gap, BUN 22, and creatinine 0.82. No recent chest x-ray, the last one being done on May 15. The patient is seen today 05/18/2021 in follow-up on the regular medical floor. He is currently sitting up in bed. Awake and alert in no acute distress. He is currently requiring 15 L high flow nasal cannula plus a partial rebreather mask to maintain O2 saturation at 91% currently. He is afebrile. Hemodynamically stable. Somewhat bradycardic. White count 6.9. Hemoglobin 16.1. Lymphocytes 0.6. D-dimer 0.90. Sodium 143. Potassium 4.5. Creatinine 0.73. C-reactive protein 1.9. He is continued on Baricitinib, Decadron, Lovenox, vitamin supplements. 0.9 normal saline at 75 ML's per hour. Progress note dated 05/19/2021. 41-year-old male, with history of diabetes mellitus and obesity. The patient has been seen for the last number of days, because of coronavirus associated pneumonia. He is in room 484. He is an inmate from the local detention. The police officers in the room with him at all times. The patient currently remains on 15 L high flow nasal O2, and a partial rebreather mask. The patient is also g etting saline, at 75 mL an hour. The patient states he feels about the same today as he did yesterday. No better, yet no worse. He is coughing. Shortness of breath is worse on exertion. He is not producing any phlegm. There is no fever, chills, chest pain, nausea, vomiting, diarrhea, or abdominal pain. White count 7.3, he will be 16.3, hematocrit 48.6, platelet count 190,000. D-dimer is 0.92. Sodium 138, potassium 4.4, chlorides 109, CO2 23, anion gap 6, BUN 18, and creatinine 0.69. C-reactive protein is 1.6. Chest x-ray from today, shows diffuse bilateral left greater than right infiltrates. The patient is seen today 05/20/2021 in follow-up on the regular medical floor. He is currently resting in bed. Awake and alert. Mild respiratory distress. Maintaining O2 saturations in the mid 90s on 15 L high flow nasal cannula along with nonrebreather mask. White count 7.2. Hemoglobin 6.6. Lymphocytes 0.5. Sodium 137. Potassium 4.3. Creatinine 0.67. Glucose 154. He remains on Baricitinib, Decadron, Lovenox, vitamin supplements. Objective - Vital Signs Vital signs: Vital Signs Temp 97.8 F 05/20/21 08:37 Pulse 63 05/20/21 08:37 Resp 18 05/20/21 08:37 BP 112/74 05/20/21 08:37 Pulse Ox 96 05/20/21 08:37 Intake & Output 05/19/21 05/20/21 05/20/21 18:59 06:59 18:59 Intake Total 435 Output Total 500 Balance 435 -500 Intake: IV 75 Sodium Chloride 0.9% 1, 75 000 ml @ 75 mls/hr IV . [id number] Rx#:[id number] Oral 360 Output: Urine 500 Other: # Voids 3 3 - Exam GENERAL EXAM: Alert, 41-year-old male patient on 15 L high flow nasal cannula plus a partial rebreather mask with O2 saturation at 90%, fairly comfortable in no apparent distress. HEAD: Normocephalic. EYES: Normal reaction of pupils, equal size. NOSE: Clear with pink turbinates. THROAT: No erythema or exudates. NECK: No masses, no JVD. CHEST: No chest wall deformity. LUNGS: Equal air entry with crackles in the bilateral posterior bases. CVS: S1 and S2 normal with no audible murmur, regular rhythm. ABDOMEN: No hepatosplenomegaly, normal bowel sounds, no guarding or rigidity. SPINE: No scoliosis or deformity SKIN: No rashes CENTRAL NERVOUS SYSTEM: No focal deficits, tone is normal in all 4 extremities. EXTREMITIES: There is no peripheral edema. No clubbing, no cyanosis. Peripheral pulses are intact. - Labs CBC & Chem 7: 05/20/21 08:42 05/20/21 08:42 Labs: Abnormal Lab Results - Last 24 Hours (Table) 05/19/21 05/20/21 05/20/21 Range/Units 16:17 06:59 08:42 Lymphocytes # 0.5 L (1.0-4.8) k/uL Glucose (74-99) mg/dL POC Glucose (mg/dL) 183 H 147 H (75-99) mg/dL ALT (4-49) U/L Total Protein (6.3-8.2) g/dL Albumin (3.5-5.0) g/dL 05/20/21 05/20/21 Range/Units 08:42 11:36 Lymphocytes # (1.0-4.8) k/uL Glucose 154 H (74-99) mg/dL POC Glucose (mg/dL) 219 H (75-99) mg/dL ALT 52 H (4-49) U/L Total Protein 5.9 L (6.3-8.2) g/dL Albumin 2.9 L (3.5-5.0) g/dL Assessment and Plan Assessment: 1 Acute hypoxemic respiratory failure secondary to acute COVID-19 pneumonia. Diagnosed on 05/05/2021. Outside the window for Remdesivir. Not vaccinated. Initiated on Baricitinib. 2 Elevated inflammatory markers secondary to above 3 Obesity 4 History of AP 5 Diabetes mellitus 6 Currently incarcerated with multiple inmates with positive COVID-19 infection Plan: The patient was seen and evaluated by Dr. Medina Now requiring AirVo high flow oxygen oxygen at 60 L and 90% FiO2 D-dimer pending, may need CT angiogram to rule out PE Continue Lovenox, Decadron, vitamin supplements Continue Baricitinib We'll continue to titrate the FiO2 as tolerated Follow-up chest x-ray and inflammatory markers in the a.m. Prognosis is guarded We'll continue to follow and make further recommendations based on his clinical status I, the cosigning physician, performed a history & physical examination of the patient. Lungs sounds with crackles in the bilateral bases. Maintaining good O2 saturations in the low 90s on AirVo high flow oxygen at 60 L and 90% FiO2. I discussed the assessment and plan of care with my nurse practitioner, Ami Woodard. I attest to the above note as dictated by her.
[2021-05-20 17:02] LABS: Glucose,Whole Blood 246 mg/dL (75-99)
--- NOTE | 2021-05-20 17:17 | P.PN ---
Progress Note - Text Progress Note Date: 05/20/21 Chief Complaint: Short of breath This is a pleasant 41-year-old patient of Dr. Lio Mendes. Patient has a prior history of diabetes. He lost weight and use of medications. No diet control. Patient has been in the assisted for last 4 months. Has been an outbreak in the assisted of COVID-19. Patient has not taken vaccination for COVID-19. May 05 she started off getting symptoms the form of a fever. Progressively patient is become more short of breath and coughing. Some change in taste and decrease in smell. Having a mild headache. Tired rundown. Poor appetite. Patient became hypoxic is now admitted. He is outside the hospital guidelines window for IV Remdesivir. Started with IV prednisone. May 16: Patient got up to 15 L of high flow cannula. With a nonrebreather. The mask is not fitting well. I've asked the nurse to try to adjust that. Not much of an appetite. Tired. We'll have the patient sit up in a chair May 17: Remains on 15 L high flow cannula. An nonrebreather. Tired. Eating about 50%. Shortness of breath. In bed. Baricitinib started yesterday May 18: Reclining in bed. Tired. Short of breath. 15 L high flow nasal cannula plus a partial rebreather. Oral intake variable. May 19: Tired. Reclining in bed. On 15 L nasal cannula. Oral intake variable. Short of breath. Have asked the patient to sit up in a chair as much as possible. On Baricitinib. Dexamethasone. May 20: In bed. 15 L nasal cannula. Short of breath. Eating some. On Baricitinib) dexamethasone. Review of systems: Was done for constitutional, cardiovascular, GI, pulmonary. relevant finding as above Active Medications Acetaminophen (Acetaminophen Tab 325 Mg Tab) 650 mg PO Q6HR PRN PRN Reason: Mild Pain or Fever > 100.5 Last Admin: 05/20/21 08:43 Dose: 650 mg Documented by: Albuterol Sulfate (Albuterol Hfa Inhaler) 2 puff INHALATION RT-QID [facility] Last Admin: 05/20/21 16:44 Dose: 2 puff Documented by: Ascorbic Acid (Ascorbic Acid 500 Mg Tab) 1,000 mg PO DAILY [facility] Last Admin: 05/20/21 08:43 Dose: 1,000 mg Documented by: Baricitinib (Baricitinib 2 Mg Tablet) 4 mg PO DAILY@1200 [facility] Stop: 05/29/21 12:01 Last Admin: 05/20/21 08:43 Dose: 4 mg Documented by: Cholecalciferol (Cholecalciferol 25 Mcg (1000 Iu) Tablet) 100 mcg PO DAILY [facility] Last Admin: 05/20/21 08:43 Dose: 100 mcg Documented by: Dexamethasone (Dexamethasone 2 Mg Tab) 6 mg PO DAILY [facility] Last Admin: 05/20/21 08:43 Dose: 6 mg Documented by: Enoxaparin Sodium (Enoxaparin 40 Mg/0.4 Ml Syringe) 40 mg SQ DAILY [facility] Last Admin: 05/20/21 08:43 Dose: 40 mg Documented by: Sodium Chloride (Saline 0.9%) 1,000 mls @ 75 mls/hr IV .[id number] [facility] Last Admin: 05/20/21 08:44 Dose: Not Given Documented by: Insulin Aspart (Insulin Aspart (Novolog) 100 Unit/Ml Vial) 0 unit SQ AC-TID [facility]; Protocol Last Admin: 05/20/21 12:36 Dose: 100 unit Documented by: Naloxone HCl (Naloxone 0.4 Mg/Ml 1 Ml Vial) 0.2 mg IV Q2M PRN PRN Reason: Opioid Reversal Pantoprazole Sodium (Pantoprazole 40 Mg Tablet) 40 mg PO DAILY [facility] Last Admin: 05/20/21 08:44 Dose: 40 mg Documented by: Zinc Sulfate (Zinc Sulfate 220 Mg Cap) 220 mg PO DAILY [facility] Last Admin: 05/20/21 08:43 Dose: 220 mg Documented by: Past medical history to include: Diabetes, currently not on any medications. Social history: Patient is finished to do worse nocturnal ago. Lives with his mother. 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 Family history: Hypertension Physical examination: VITAL SIGNS: 98.6, 63, 18, 112/74, 96% on 15 L GENERAL: reclining in bed, awake, short of breath. LUNGS: Respiratory rate increased, PSYCH: Alert and oriented x3; mood and affect anxious NEUROLOGICAL: Cranial nerves grossly intact; no facial asymmetry, moving all 4 limbs Rest of exam as per pulmonary and nursing INVESTIGATIONS, reviewed in the clinical context: May 20: WBC 7.2 hemoglobin 16.6 platelets 193 potassium 4.3 creatinine 0.67 May 19: WBC 7.3 hemoglobin 16.3 platelets 190 d-dimer 0.92 potassium 4.4 creatinine 0.69 Accu-Cheks 1 5120 03/16/1933 May 18: WBC 6.9 hemoglobin 16.1 d-dimer 0.9 potassium 4.5. 22 creatinine 0.73 CRP 1.9 May 17: White count 7.3 hemoglobin 16.1 potassium 4.4 creatinine 0.82 d- dimer 0.66 glucose 156 WBC 7.1 hemoglobin 7.6 platelets 136 lymphocytes 0.3 potassium 3.9 sodium 139 creatinine 0.65 d-dimer 0.59 Glucose 243 plasma lactic acid 2.8 troponin I less than 0.012 CRP 24.1 pro- calcitonin 0.46 Chest x-ray film personally reviewed by me-bilateral infiltrates EKG tracing personally reviewed by me-normal sinus rhythm. Rate 86 Assessment and plan: -COVID 19 pneumonitis the symptoms starting 10 days ago. Progressively getting worse. With hypoxia. Nonvaccinated for COVID-19: Not improving Dexamethasone 6, subcu Lovenox, vitamin C vitamin D. Baricitinib -Acute hypoxic respiratory failure from COVID 19 pneumonitis: Not improving Partial nonrebreather with high flow cannula 15 L. Incentive spirometry. -Obesity BMI 39.2 Weight loss measures -Diabetes mellitus type 2, patient been off medications. Currently uncontrolled with hyperglycemia. Secondary to steroids Levemir 14 units subcu daily at bedtime. Sliding scale insulin. -Thrombocytopenia mild with COVID 19 pneumonitis: Improved Follow CBC -Lymphocytopenia From COVID 19 -Lactic acidosis, type II from fluid deficit IV fluids - Dexamethasone, Baricitinib, subcu Lovenox, Oxygen supplement 15 L. Incentive spirometry. Encourage oral intake
--- NOTE | 2021-05-20 18:17 | PN ---
PROGRESS NOTE DATE OF SERVICE: 05/20/2021 REASON FOR FOLLOWUP: COVID-19 pneumonia. INTERVAL HISTORY: The patient is afebrile. The patient is breathing slightly comfortably. The patient still requiring a non-rebreather. The patient denies having any chest pain. Cough has decreased intensity, not bringing up any sputum. No nausea, no vomiting. No abdominal pain, no diarrhea. PHYSICAL EXAMINATION: Blood pressure 121/80 with a pulse of 61, temperature 98.3. He is 91% on 15 L high- flow oxygen. General description is a middle-aged male lying in bed in no distress. Respiratory system: Unlabored breathing, decreased intensity of breath sounds. No wheeze. Heart S1, S2. Regular rate and rhythm. Abdomen soft, no tenderness. LABS: Hemoglobin is 16.8, white count 7.2, creatinine 0.67. DIAGNOSTIC IMPRESSION AND PLAN: Patient with acute COVID-19 pneumonia, seemed to have shown some clinical improvement. Patient to continue with baricitinib, dexamethasone, Lovenox, zinc and ascorbic acid along with respiratory support and monitor clinical course closely. MMODL / IJN: [id number] /
[2021-05-21 07:35] LABS: Glucose,Whole Blood 160 mg/dL (75-99)
[2021-05-21] MEDS: INSULIN ASPART (NovoLOG) 100 UNIT/ML VIAL SQ SCH ×3 (07:41→17:33)
[2021-05-21] MEDS: dexAMETHasone 2 MG TAB PO SCH (07:41)
[2021-05-21] MEDS: ZINC SULFATE 220 MG CAP PO SCH (07:42)
[2021-05-21] MEDS: PANTOPRAZOLE 40 MG TABLET PO SCH (07:42)
[2021-05-21] MEDS: ASCORBIC ACID 500 MG TAB PO SCH (07:42)
[2021-05-21] MEDS: ENOXAPARIN 40 MG/0.4 ML SYRINGE SQ SCH (07:43)
[2021-05-21 07:55] LABS: Basophils % (A) 0 %; Eosinophils % (A) 0 %; HCT 49.3 % (39.0-53.0); HGB 16.8 gm/dL (13.0-17.5); Lymphocytes # (A) 0.4 k/uL (1.0-4.8); Lymphocytes % (A) 5 %; MCHC 34.1 g/dL (31.0-37.0); MCV 90.8 fL (80.0-100.0); Monocytes # (A) 0.5 k/uL (0-1.0); Monocytes % (A) 5 %; Neutrophils # (A) 7.4 k/uL (1.3-7.7); Neutrophils % (A) 88 %; Platelet Count 221 k/uL (150-450); RBC 5.43 m/uL (4.30-5.90); RDW 11.7 % (11.5-15.5); WBC 8.5 k/uL (3.8-10.6)
[2021-05-21] MEDS: CHOLECALCIFEROL 25 MCG (1000 IU) TABLET PO SCH (07:55)
[2021-05-21 08:14] LABS: ALT 53 U/L (4-49); AST 22 U/L (17-59); African American GFR (CKD) >90 (>60 ml/min/1.73 sqM); Albumin 2.8 g/dL (3.5-5.0); Albumin/Globulin Ratio 0.9; Alkaline Phosphatase 38 U/L (38-126); Anion Gap 5 mmol/L; Blood Urea Nitrogen 16 mg/dL (9-20); Calcium 8.8 mg/dL (8.4-10.2); Carbon Dioxide 25 mmol/L (22-30); Chloride 105 mmol/L (98-107); Glucose 196 mg/dL (74-99); Non-African American GFR(CKD) >90 (>60 ml/min/1.73 sqM); Potassium 4.3 mmol/L (3.5-5.1); Sodium 135 mmol/L (137-145); Total Bilirubin 0.7 mg/dL (0.2-1.3); Total Protein 5.8 g/dL (6.3-8.2)
[2021-05-21] MEDS: ALBUTEROL HFA INHALER INHALATION SCH ×4 (08:43→20:21)
[2021-05-21 09:27] LABS: C Reactive Protein 0.6 mg/dL (<1.0)
[2021-05-21 12:18] LABS: Glucose,Whole Blood 212 mg/dL (75-99)
[2021-05-21] MEDS: BARICITINIB 2 MG TABLET PO SCH (12:23)
[2021-05-21] MEDS: SODIUM CHLORIDE 0.9% 1,000 ML IV SCH (12:24)
--- NOTE | 2021-05-21 14:05 | P.PN ---
Subjective Progress Note Date: 05/21/21 Principal diagnosis: Coronavirus associated pneumonia. This is a 41-year-old male patient with a history of diabetes mellitus, obesity, vaping. He has a 10 day history of fever, poor appetite, shortness of breath cough and congestion that has been progressively worse. He tested positive for COVID-19 on 05/05/2021 as an inmate at the [facility]. He was brought into the emergency room today for progressing symptoms and was found to be hypoxemic with O2 saturation 86% on room air. Chest x-ray reveals bilateral patchy airspace disease. White count 7.1. Reglan 17.6. Platelets 136. Lymphocytes 0.3. D-dimer 0.59. Sodium 139. Potassium 3.9. Creatinine 0.65. Glucose 171. Lactic acid 1.4. Ferritin 1834. AST 34. ALT 31. LDH 628. C- reactive protein 24.1. Pro-calcitonin 0.46. He's been initiated on Decadron, Lovenox, vitamin supplements. He is seen on the regular medical floor. He sitting up in bed. Awake and alert in no acute distress. He is maintaining O2 saturations 89-90% on 5 L/m per nasal cannula. Progress note dated 05/16/2021. 41-year-old male, with a history of diabetes and obesity. The patient wasn't inmate at [facility]. He was brought to the hospital with increasing shortness of breath, and discovered to have coronavirus associated pneumonia. Currently, he is on nonrebreather mask, and nasal cannula high flow, and 15 L/m. He states that he feels okay when he sitting still, but becomes very short of breath when he exerts himself. Because of his worsening oxygenation, today we started him on HEVER. No new laboratory data on this patient. Chest x-ray from yesterday is reviewed. Progress note dated 05/17/2021. 41-year-old male, with a history of diabetes mellitus and obesity. The patient was seen yesterday and again seen today, in room 484. He is an inmate at [facility]. He was brought in with coronavirus associated pneumonia, and increasing shortness of breath. He remains on a partial rebreather mask, and 15 L high flow nasal O2. An officer is in the room with him. He is laying flat in bed. Does not appear to be in any significant distress. Currently labs include a white count 7.3, he will be 16.1, hematocrit 49.3, platelet count 180,000. D- dimer is 0.66. Sodium 145, potassium 4.4, chlorides 113, CO2 26, normal anion gap, BUN 22, and creatinine 0.82. No recent chest x-ray, the last one being done on May 15. Progress note dated 05/19/2021. 41-year-old male, with history of diabetes mellitus and obesity. The patient has been seen for the last number of days, because of coronavirus associated pneumonia. He is in room 484. He is an inmate from the local detention. The police officers in the room with him at all times. The patient currently remains on 15 L high flow nasal O2, and a partial rebreather mask. The patient is also getting saline, at 75 mL an hour. The patient states he feels about the same today as he did yesterday. No better, yet no worse. He is coughing. Shortness of breath is worse on exertion. He is not producing any phlegm. There is no fever, chills, chest pain, nausea, vomiting, diarrhea, or abdominal pain. White count 7.3, he will be 16.3, hematocrit 48.6, platelet count 190,000. D-dimer is 0.92. Sodium 138, potassium 4.4, chlorides 109, CO2 23, anion gap 6, BUN 18, and creatinine 0.69. C-reactive protein is 1.6. Chest x-ray from today, shows diffuse bilateral left greater than right infiltrates. Progress note dated 05/21/2021. 41-year-old male admitted with a diagnosis of coronavirus associated pneumonia. Currently, the patient's on 15 L high flow nasal O2, and is using a nonrebreather mask on and off. I told him to keep the nonrebreather mask off, and the nurses come in to check his saturations just on the 15 L high flow nasal O2. Clinically, the patient appears to be improving. He seems less short of breath. He remains on albuterol inhaler, vitamin C, Decadron, Lovenox, zinc, and HEVER. White count 8.5, hemoglobin 16.8, hematocrit 49.3, and platelet count 221,000. D-dimer is 0.58. Sodium 135, potassium 4.3, chlorides 105, CO2 25, anion gap 5, BUN 16, and creatinine 0.59. Objective - Vital Signs Vital signs: Vital Signs Temp 98.3 F 05/21/21 10:00 Pulse 84 05/21/21 10:00 Resp 22 05/21/21 10:00 BP 116/74 05/21/21 10:00 Pulse Ox 97 05/21/21 10:00 Intake & Output 05/20/21 05/21/21 05/21/21 18:59 06:59 18:59 Output Total 1200 Balance -1200 Output: Urine 1200 - Exam Oriented 3, mild tachypnea, no audible wheezing, use of accessory muscles, or conversational dyspnea. HEENT examination is grossly unremarkable. Neck supple. Full range of motion. No adenopathy thyromegaly or neck vein distention. Cardiovascular examination reveals regular rhythm rate. S1-S2 normal. No S3 or S4. No discernible murmur noted. Heart sounds are distant. Heart rate 84 bpm. Lungs reveal diffuse bilateral rhonchi. Mild crackles are noted. No wheezes. Breath sounds are equal bilaterally. Saturations are 97%. Currently on a partial rebreather mask, and 15 L high flow nasal cannula. Abdomen soft bowel sounds are heard. No masses or tenderness. Extremities are intact. No cyanosis clubbing or edema. Skin is without rash or lesion. Neurologic examination is brief but nonfocal. - Labs CBC & Chem 7: 05/21/21 07:25 05/21/21 07:25 Labs: Abnormal Lab Results - Last 24 Hours (Table) 05/20/21 05/21/21 05/21/21 Range/Units 17:00 07:25 07:25 Lymphocytes # 0.4 L (1.0-4.8) k/uL Sodium 135 L (137-145) mmol/L Creatinine 0.59 L (0.66-1.25) mg/dL Glucose 196 H (74-99) mg/dL POC Glucose (mg/dL) 246 H (75-99) mg/dL ALT 53 H (4-49) U/L Total Protein 5.8 L (6.3-8.2) g/dL Albumin 2.8 L (3.5-5.0) g/dL 05/21/21 05/21/21 Range/Units 07:33 12:17 Lymphocytes # (1.0-4.8) k/uL Sodium (137-145) mmol/L Creatinine (0.66-1.25) mg/dL Glucose (74-99) mg/dL POC Glucose (mg/dL) 160 H 212 H (75-99) mg/dL ALT (4-49) U/L Total Protein (6.3-8.2) g/dL Albumin (3.5-5.0) g/dL Assessment and Plan Assessment: Acute hypoxemic respiratory failure secondary to coronavirus associated pneumonia. Elevated inflammatory markers secondary to coronavirus infection. Obesity. History of diabetes mellitus. Plan: Plan dated 05/16/2021. The patient seems to be reasonably stable, though becomes very short of breath with any activity. He remains on a nonrebreather mask, and 15 L high flow nasal cannula. Today, in addition to the current medications, we added HEVER. His other medications including albuterol inhaler, vitamin C, vitamin D3, and zinc, as well as Decadron, and Lovenox. Additional recommendations and suggestions are forthcoming. We will continue to follow the patient and make recommendations where appropriate. Plan dated 05/17/2021. The patient appears to be reasonably stable today. He is receiving all appropriate medications. Yesterday, he was on a nonrebreather mass. Today's on a partial rebreather mask. He is receiving normal medications including albuterol inhaler, vitamin C, vitamin D3, zinc, Decadron, Lovenox, and HEVER. We will continue to follow make recommendations where appropriate. Prognosis is guarded. The patient is likely a bit better today than he was yesterday. I did tell him to move about in bed when he is laying in bed. Plan dated 05/19/2021. The patient remains on vitamin C, vitamin D3, and zinc. In addition, the patient is on Decadron, and Lovenox. Finally, the patient is taking HEVER, 4 mg a day, for total of 14 days maximum. The patient's also on a albuterol inhaler. Additional recommendations and suggestions are forthcoming. Prognosis is guarded. I did tell the patient and make sure that when he is in bed, that he lays right side down, left side down, supine, and even prone if possible. Plan dated 05/21/2021. I asked the patient to stay off the partial rebreather mask, and just wear the 15 L high flow nasal O2. I then instructed the nurse to go into the room and about 15-20 minutes, and check a saturation. Clinically, the patient does not appear to be very short of breath. The patient's medications are reviewed. He is on appropriate medications at this time. Labs, x-rays, medications are all reviewed. Prognosis is guarded. Time with Patient: Less than 30
[2021-05-21 16:41] LABS: Glucose,Whole Blood 246 mg/dL (75-99)
--- NOTE | 2021-05-21 17:45 | P.PN ---
Subjective This is a pleasant 41-year-old patient of Dr. Lio Mendes. Patient has a prior history of diabetes. He lost weight and use of medications. No diet control. Patient has been in the custodial for last 4 months. Has been an outbreak in the custodial of COVID-19. Patient has not taken vaccination for COVID-19. May 05 she started off getting symptoms the form of a fever. Progressively patient is become more short of breath and coughing. Some change in taste and decrease in smell. Having a mild headache. Tired rundown. Poor appetite. Patient became hypoxic is now admitted. He is outside the hospital guidelines window for IV Remdesivir. Started with IV prednisone. May 16: Patient got up to 15 L of high flow cannula. With a nonrebreather. The mask is not fitting well. I've asked the nurse to try to adjust that. Not much of an appetite. Tired. We'll have the patient sit up in a chair May 17: Remains on 15 L high flow cannula. An nonrebreather. Tired. Eating about 50%. Shortness of breath. In bed. Baricitinib started yesterday May 18: Reclining in bed. Tired. Short of breath. 15 L high flow nasal cannula plus a partial rebreather. Oral intake variable. May 19: Tired. Reclining in bed. On 15 L nasal cannula. Oral intake variable. Short of breath. Have asked the patient to sit up in a chair as much as possible. On Baricitinib. Dexamethasone. May 20: In bed. 15 L nasal cannula. Short of breath. Eating some. On Baricitinib) dexamethasone. Subjective: This is a pleasant 41 years old male who presents with bilateral, with pneumonia and hypoxia. He remains on 15 L/m via nasal cannula, high flow nasal cannula. Rest of vital signs stable. He is slowly to improve, the tumors. Pulmonary following the case closely and he is on multiple medications VITAMIN C, vitamin D and zinc. Also he is on dexamethasone by mouth 6 mg and barcitinib . Labs showing mild lymphopenia and mild hyperglycemia He is on Lovenox for DVT prophylaxis Objective - Vital Signs Vital signs: Vital Signs Temp 98.7 F 05/21/21 14:00 Pulse 63 05/21/21 14:00 Resp 18 05/21/21 14:00 BP 122/78 05/21/21 14:00 Pulse Ox 96 05/21/21 14:00 Intake & Output 05/20/21 05/21/21 05/21/21 18:59 06:59 18:59 Output Total 1200 Balance -1200 Output: Urine 1200 - Exam GENERAL: The patient is alert and oriented x3, not in any acute distress. Well developed, well nourished. HEENT: Pupils are round and equally reacting to light. EOMI. No scleral icterus. No conjunctival pallor. Normocephalic, atraumatic. No pharyngeal erythema. No thyromegaly. CARDIOVASCULAR: S1 and S2 present. No murmurs, rubs, or gallops. PULMONARY: Chest is clear to auscultation, no wheezing or crackles. Mild tachypnea, on nasal cannula at 50 L/m ABDOMEN: Soft, nontender, nondistended, normoactive bowel sounds. No palpable organomegaly. MUSCULOSKELETAL: No joint swelling or deformity. EXTREMITIES: No cyanosis, clubbing, or pedal edema. NEUROLOGICAL: Gross neurological examination did not reveal any focal deficits. SKIN: No rashes. no petechiae. - Labs CBC & Chem 7: 05/21/21 07:25 05/21/21 07:25 Labs: Abnormal Lab Results - Last 24 Hours (Table) 05/20/21 05/21/21 05/21/21 Range/Units 17:00 07:25 07:25 Lymphocytes # 0.4 L (1.0-4.8) k/uL Sodium 135 L (137-145) mmol/L Creatinine 0.59 L (0.66-1.25) mg/dL Glucose 196 H (74-99) mg/dL POC Glucose (mg/dL) 246 H (75-99) mg/dL ALT 53 H (4-49) U/L Total Protein 5.8 L (6.3-8.2) g/dL Albumin 2.8 L (3.5-5.0) g/dL 05/21/21 05/21/21 Range/Units 07:33 12:17 Lymphocytes # (1.0-4.8) k/uL Sodium (137-145) mmol/L Creatinine (0.66-1.25) mg/dL Glucose (74-99) mg/dL POC Glucose (mg/dL) 160 H 212 H (75-99) mg/dL ALT (4-49) U/L Total Protein (6.3-8.2) g/dL Albumin (3.5-5.0) g/dL Assessment and Plan Assessment: -COVID 19 pneumonitis the symptoms. With hypoxia. Nonvaccinated for COVID-19 Dexamethasone 6, subcu Lovenox, vitamin C vitamin D. Baricitinib . Pulmonary consult -Acute hypoxic respiratory failure from COVID 19 pneumonitis Partial nonrebreather with high flow cannula 15 L. Incentive spirometry. -Obesity BMI 39.2 Weight loss measures -Diabetes mellitus type 2, patient been off medications. Currently uncontrolled with hyperglycemia. Secondary to steroids Levemir 14 units subcu daily at bedtime. Sliding scale insulin. -Thrombocytopenia mild with COVID 19 pneumonitis: Improved Follow CBC -Lymphocytopenia From COVID 19 -Lactic acidosis, type II from fluid deficit IV fluids
--- NOTE | 2021-05-21 18:57 | PN ---
PROGRESS NOTE DATE OF SERVICE: 05/21/2021 REASON FOR FOLLOWUP: COVID-19 pneumonia. INTERVAL HISTORY: The patient is afebrile. He is breathing more comfortably today. The patient denies having any chest pain. Cough has decreased in intensity. No nausea, vomiting. No abdominal pain or diarrhea. PHYSICAL EXAMINATION: Blood pressure 122/78 with a pulse of 63, temperature 98.7. He is 96% on 15 L high- flow oxygen. General description is a middle-aged male lying in bed in no distress. Respiratory system: Unlabored breathing, decreased intensity of breath sounds. No wheeze. Heart S1, S2. Regular rate and rhythm. Abdomen: soft, no tenderness. LABS: Hemoglobin is 16.8, white count 8.5, creatinine 0.59. IMPRESSION/PLAN: Patient with acute COVID-19 pneumonia in this patient did have minimal clinical improvement. Patient currently on nasal cannula oxygen. The patient at this time to continue with baricitinib, dexamethasone, Lovenox, zinc and ascorbic acid and respiratory support and monitor clinical course closely. Continue supportive care. MMODL / IJN: [id number] /
[2021-05-22] MEDS: SODIUM CHLORIDE 0.9% 1,000 ML IV SCH ×2 (00:06→09:11)
--- NOTE | 2021-05-22 06:53 | XR ---
EXAMINATION TYPE: XR chest 1V portable DATE OF EXAM: 05/22/2021 COMPARISON: 05/19/2021 HISTORY: Covid TECHNIQUE: Single frontal view of the chest is obtained. FINDINGS: There are mild to moderate scattered small airspace/alveolar infiltrates unchanged compare d to the prior study. There is no pneumothorax or large pleural effusion. Heart size is normal and the pulmonary vasculatur e is not congested. The osseous structures are intact. IMPRESSION: No change in the diffuse scattered lung infiltrates.
[2021-05-22 07:03] LABS: Glucose,Whole Blood 130 mg/dL (75-99)
[2021-05-22] MEDS: INSULIN ASPART (NovoLOG) 100 UNIT/ML VIAL SQ SCH ×3 (07:37→17:13)
[2021-05-22] MEDS: ALBUTEROL HFA INHALER INHALATION SCH ×4 (08:28→20:17)
[2021-05-22 08:36] LABS: ALT 71 U/L (4-49); AST 29 U/L (17-59); African American GFR (CKD) >90 (>60 ml/min/1.73 sqM); Albumin 3.5 g/dL (3.5-5.0); Albumin/Globulin Ratio 1.1; Alkaline Phosphatase 48 U/L (38-126); Anion Gap 8 mmol/L; Blood Urea Nitrogen 21 mg/dL (9-20); Calcium 9.2 mg/dL (8.4-10.2); Carbon Dioxide 23 mmol/L (22-30); Chloride 105 mmol/L (98-107); Globulin 3.3 g/dL; Glucose 131 mg/dL (74-99); Non-African American GFR(CKD) >90 (>60 ml/min/1.73 sqM); Potassium 4.7 mmol/L (3.5-5.1); Sodium 136 mmol/L (137-145); Total Protein 6.8 g/dL (6.3-8.2)
[2021-05-22 08:40] LABS: Basophils % (A) 0 %; Eosinophils % (A) 0 %; HCT 54.1 % (39.0-53.0); HGB 18.5 gm/dL (13.0-17.5); Lymphocytes # (A) 1.1 k/uL (1.0-4.8); Lymphocytes % (A) 11 %; MCH 30.7 pg (25.0-35.0); MCHC 34.3 g/dL (31.0-37.0); MCV 89.5 fL (80.0-100.0); Mean Platelet Volume 7.9; Monocytes # (A) 0.5 k/uL (0-1.0); Monocytes % (A) 4 %; Neutrophils # (A) 8.6 k/uL (1.3-7.7); Neutrophils % (A) 83 %; Platelet Count 414 k/uL (150-450); RBC 6.04 m/uL (4.30-5.90); RDW 12.6 % (11.5-15.5); WBC 10.3 k/uL (3.8-10.6)
[2021-05-22] MEDS: dexAMETHasone 2 MG TAB PO SCH (09:10)
[2021-05-22] MEDS: ZINC SULFATE 220 MG CAP PO SCH (09:11)
[2021-05-22] MEDS: ASCORBIC ACID 500 MG TAB PO SCH (09:11)
[2021-05-22] MEDS: PANTOPRAZOLE 40 MG TABLET PO SCH (09:11)
[2021-05-22] MEDS: ENOXAPARIN 40 MG/0.4 ML SYRINGE SQ SCH (09:11)
[2021-05-22] MEDS: CHOLECALCIFEROL 25 MCG (1000 IU) TABLET PO SCH (09:11)
--- NOTE | 2021-05-22 11:41 | P.PN ---
Subjective This is a pleasant 41-year-old patient of Dr. Lio Mendes. Patient has a prior history of diabetes. He lost weight and use of medications. No diet control. Patient has been in the custodial for last 4 months. Has been an outbreak in the custodial of COVID-19. Patient has not taken vaccination for COVID-19. May 05 she started off getting symptoms the form of a fever. Progressively patient is become more short of breath and coughing. Some change in taste and decrease in smell. Having a mild headache. Tired rundown. Poor appetite. Patient became hypoxic is now admitted. He is outside the hospital guidelines window for IV Remdesivir. Started with IV prednisone. May 16: Patient got up to 15 L of high flow cannula. With a nonrebreather. The mask is not fitting well. I've asked the nurse to try to adjust that. Not much of an appetite. Tired. We'll have the patient sit up in a chair May 17: Remains on 15 L high flow cannula. An nonrebreather. Tired. Eating about 50%. Shortness of breath. In bed. Baricitinib started yesterday May 18: Reclining in bed. Tired. Short of breath. 15 L high flow nasal cannula plus a partial rebreather. Oral intake variable. May 19: Tired. Reclining in bed. On 15 L nasal cannula. Oral intake variable. Short of breath. Have asked the patient to sit up in a chair as much as possible. On Baricitinib. Dexamethasone. May 20: In bed. 15 L nasal cannula. Short of breath. Eating some. On Baricitinib) dexamethasone. Subjective: 05/21/21 This is a pleasant 41 years old male who presents with bilateral, with pneumonia and hypoxia. He remains on 15 L/m via nasal cannula, high flow nasal cannula. Rest of vital signs stable. He is slowly to improve, the tumors. Pulmonary following the case closely and he is on multiple medications VITAMIN C, vitamin D and zinc. Also he is on dexamethasone by mouth 6 mg and barcitinib . Labs showing mild lymphopenia and mild hyperglycemia He is on Lovenox for DVT prophylaxis 05/22/2021 Patient with bilateral, with pneumonia. No much change from yesterday. He is still mildly tachypneic while he is sitting in bed most of the time. His saturating 90s on 15 L oxygen via high flow nasal cannula. CBC and BMP from today are unremarkable. Chest x-ray showing no change in diffuse bilateral infiltrate. He remains on same treatment of vitamin C, vitamin D and zinc. dexamethasone by mouth 6 mg daily and barcitinib Objective - Vital Signs Vital signs: Vital Signs Temp 98.5 F 05/22/21 09:00 Pulse 71 05/22/21 09:00 Resp 22 05/22/21 09:00 BP 107/70 05/22/21 09:00 Pulse Ox 94 L 05/22/21 09:00 Intake & Output 05/21/21 05/22/21 05/22/21 19:59 06:59 18:59 Output Total Balance Output: Urine Other: # Voids - Exam GENERAL: The patient is alert and oriented x3, not in any acute distress. Well developed, well nourished. HEENT: Pupils are round and equally reacting to light. EOMI. No scleral icterus. No conjunctival pallor. Normocephalic, atraumatic. No pharyngeal erythema. No thyromegaly. CARDIOVASCULAR: S1 and S2 present. No murmurs, rubs, or gallops. PULMONARY: Chest is clear to auscultation, no wheezing or crackles. Mild tachypnea, on nasal cannula at 50 L/m ABDOMEN: Soft, nontender, nondistended, normoactive bowel sounds. No palpable organomegaly. MUSCULOSKELETAL: No joint swelling or deformity. EXTREMITIES: No cyanosis, clubbing, or pedal edema. NEUROLOGICAL: Gross neurological examination did not reveal any focal deficits. SKIN: No rashes. no petechiae. - Labs CBC & Chem 7: 05/22/21 07:40 05/22/21 07:40 Labs: Abnormal Lab Results - Last 24 Hours (Table) 05/21/21 05/22/21 05/22/21 Range/Units 16:39 07:01 07:40 RBC 6.04 H (4.30-5.90) m/uL Hgb 18.5 H (13.0-17.5) gm/dL Hct 54.1 H (39.0-53.0) % Neutrophils # 8.6 H (1.3-7.7) k/uL Sodium (137-145) mmol/L BUN (9-20) mg/dL Glucose (74-99) mg/dL POC Glucose (mg/dL) 246 H 130 H (75-99) mg/dL ALT (4-49) U/L 05/22/21 Range/Units 07:40 RBC (4.30-5.90) m/uL Hgb (13.0-17.5) gm/dL Hct (39.0-53.0) % Neutrophils # (1.3-7.7) k/uL Sodium 136 L (137-145) mmol/L BUN 21 H (9-20) mg/dL Glucose 131 H (74-99) mg/dL POC Glucose (mg/dL) (75-99) mg/dL ALT 71 H (4-49) U/L Assessment and Plan Assessment: -COVID 19 pneumonitis the symptoms. With hypoxia. Nonvaccinated for COVID-19 Dexamethasone 6, subcu Lovenox, vitamin C vitamin D. Baricitinib . Pulmonary consult -Acute hypoxic respiratory failure from COVID 19 pneumonitis Partial nonrebreather with high flow cannula 15 L. Incentive spirometry. -Obesity BMI 39.2 Weight loss measures -Diabetes mellitus type 2, patient been off medications. Currently uncontrolled with hyperglycemia. Secondary to steroids Levemir 14 units subcu daily at bedtime. Sliding scale insulin. -Thrombocytopenia mild with COVID 19 pneumonitis: Improved Follow CBC -Lymphocytopenia From COVID 19 -Lactic acidosis, type II from fluid deficit IV fluids
[2021-05-22 11:55] LABS: Glucose,Whole Blood 172 mg/dL (75-99)
[2021-05-22] MEDS: BARICITINIB 2 MG TABLET PO SCH (12:17)
--- NOTE | 2021-05-22 14:15 | P.PN ---
Subjective Progress Note Date: 05/22/21 Principal diagnosis: Coronavirus associated pneumonia. This is a 41-year-old male patient with a history of diabetes mellitus, obesity, vaping. He has a 10 day history of fever, poor appetite, shortness of breath cough and congestion that has been progressively worse. He tested positive for COVID-19 on 05/05/2021 as an inmate at the [facility]. He was brought into the emergency room today for progressing symptoms and was found to be hypoxemic with O2 saturation 86% on room air. Chest x-ray reveals bilateral patchy airspace disease. White count 7.1. Reglan 17.6. Platelets 136. Lymphocytes 0.3. D-dimer 0.59. Sodium 139. Potassium 3.9. Creatinine 0.65. Glucose 171. Lactic acid 1.4. Ferritin 1834. AST 34. ALT 31. LDH 628. C- reactive protein 24.1. Pro-calcitonin 0.46. He's been initiated on Decadron, Lovenox, vitamin supplements. He is seen on the regular medical floor. He sitting up in bed. Awake and alert in no acute distress. He is maintaining O2 saturations 89-90% on 5 L/m per nasal cannula. Progress note dated 05/16/2021. 41-year-old male, with a history of diabetes and obesity. The patient wasn't inmate at [facility]. He was brought to the hospital with increasing shortness of breath, and discovered to have coronavirus associated pneumonia. Currently, he is on nonrebreather mask, and nasal cannula high flow, and 15 L/m. He states that he feels okay when he sitting still, but becomes very short of breath when he exerts himself. Because of his worsening oxygenation, today we started him on HEVER. No new laboratory data on this patient. Chest x-ray from yesterday is reviewed. Progress note dated 05/17/2021. 41-year-old male, with a history of diabetes mellitus and obesity. The patient was seen yesterday and again seen today, in room 484. He is an inmate at [facility]. He was brought in with coronavirus associated pneumonia, and increasing shortness of breath. He remains on a partial rebreather mask, and 15 L high flow nasal O2. An officer is in the room with him. He is laying flat in bed. Does not appear to be in any significant distress. Currently labs include a white count 7.3, he will be 16.1, hematocrit 49.3, platelet count 180,000. D- dimer is 0.66. Sodium 145, potassium 4.4, chlorides 113, CO2 26, normal anion gap, BUN 22, and creatinine 0.82. No recent chest x-ray, the last one being done on May 15. Progress note dated 05/19/2021. 41-year-old male, with history of diabetes mellitus and obesity. The patient has been seen for the last number of days, because of coronavirus associated pneumonia. He is in room 484. He is an inmate from the local correction. The police officers in the room with him at all times. The patient currently remains on 15 L high flow nasal O2, and a partial rebreather mask. The patient is also getting saline, at 75 mL an hour. The patient states he feels about the same today as he did yesterday. No better, yet no worse. He is coughing. Shortness of breath is worse on exertion. He is not producing any phlegm. There is no fever, chills, chest pain, nausea, vomiting, diarrhea, or abdominal pain. White count 7.3, he will be 16.3, hematocrit 48.6, platelet count 190,000. D-dimer is 0.92. Sodium 138, potassium 4.4, chlorides 109, CO2 23, anion gap 6, BUN 18, and creatinine 0.69. C-reactive protein is 1.6. Chest x-ray from today, shows diffuse bilateral left greater than right infiltrates. Progress note dated 05/21/2021. 41-year-old male admitted with a diagnosis of coronavirus associated pneumonia. Currently, the patient's on 15 L high flow nasal O2, and is using a nonrebreather mask on and off. I told him to keep the nonrebreather mask off, and the nurses come in to check his saturations just on the 15 L high flow nasal O2. Clinically, the patient appears to be improving. He seems less short of breath. He remains on albuterol inhaler, vitamin C, Decadron, Lovenox, zinc, and HEVER. White count 8.5, hemoglobin 16.8, hematocrit 49.3, and platelet count 221,000. D-dimer is 0.58. Sodium 135, potassium 4.3, chlorides 105, CO2 25, anion gap 5, BUN 16, and creatinine 0.59. Progress note dated 05/22/2021. 41-year-old male again seen in room 484. He was admitted with a diagnosis of coronavirus associated pneumonia and hypoxemic respiratory failure. The patient has been weaned down to 15 L high flow nasal cannula, and he is not using the nonrebreather mask anymore. Clinically, he feels marginally improved. White count 10.3, hemoglobin 18.5, hematocrit 54.1, and platelet count 414,000. Sodium 136, potassium 4.7, chlorides 105, CO2 23, anion gap 8, BUN 21, and creatinine 0.85. A chest x-ray done this morning, continues to show diffuse bilateral infiltrates, without much change. Objective - Vital Signs Vital signs: Vital Signs Temp 98.5 F 05/22/21 09:00 Pulse 71 05/22/21 09:00 Resp 22 05/22/21 09:00 BP 107/70 05/22/21 09:00 Pulse Ox 94 L 05/22/21 09:00 Intake & Output 05/21/21 05/22/21 05/22/21 19:59 06:59 18:59 Output Total Balance Output: Urine Other: # Voids - Exam Oriented 3, mild tachypnea, no audible wheezing, use of accessory muscles, or conversational dyspnea. HEENT examination is grossly unremarkable. Neck supple. Full range of motion. No adenopathy thyromegaly or neck vein distention. Cardiovascular examination reveals regular rhythm rate. S1-S2 normal. No S3 or S4. No discernible murmur noted. Heart sounds are distant. Heart rate 71 bpm. Lungs reveal diffuse bilateral rhonchi. Mild crackles are noted. No wheezes. Breath sounds are equal bilaterally. Saturations are 95%, on 15 L high flow nasal O2. Abdomen soft bowel sounds are heard. No masses or tenderness. Extremities are intact. No cyanosis clubbing or edema. Skin is without rash or lesion. Neurologic examination is brief but nonfocal. - Labs CBC & Chem 7: 05/22/21 07:40 05/22/21 07:40 Labs: Abnormal Lab Results - Last 24 Hours (Table) 05/21/21 05/22/21 05/22/21 Range/Units 16:39 07:01 07:40 RBC 6.04 H (4.30-5.90) m/uL Hgb 18.5 H (13.0-17.5) gm/dL Hct 54.1 H (39.0-53.0) % Neutrophils # 8.6 H (1.3-7.7) k/uL Sodium (137-145) mmol/L BUN (9-20) mg/dL Glucose (74-99) mg/dL POC Glucose (mg/dL) 246 H 130 H (75-99) mg/dL ALT (4-49) U/L 05/22/21 05/22/21 Range/Units 07:40 11:53 RBC (4.30-5.90) m/uL Hgb (13.0-17.5) gm/dL Hct (39.0-53.0) % Neutrophils # (1.3-7.7) k/uL Sodium 136 L (137-145) mmol/L BUN 21 H (9-20) mg/dL Glucose 131 H (74-99) mg/dL POC Glucose (mg/dL) 172 H (75-99) mg/dL ALT 71 H (4-49) U/L Assessment and Plan Assessment: Acute hypoxemic respiratory failure secondary to coronavirus associated pneumonia. Elevated inflammatory markers secondary to coronavirus infection. Obesity. History of diabetes mellitus. Plan: Plan dated 05/16/2021. The patient seems to be reasonably stable, though becomes very short of breath with any activity. He remains on a nonrebreather mask, and 15 L high flow nasal cannula. Today, in addition to the current medications, we added HEVER. His other medications including albuterol inhaler, vitamin C, vitamin D3, and zinc, as well as Decadron, and Lovenox. Additional recommendations and suggestions are forthcoming. We will continue to follow the patient and make recommendations where appropriate. Plan dated 05/17/2021. The patient appears to be reasonably stable today. He is receiving all appropr iate medications. Yesterday, he was on a nonrebreather mass. Today's on a partial rebreather mask. He is receiving normal medications including albuterol inhaler, vitamin C, vitamin D3, zinc, Decadron, Lovenox, and HEVER. We will continue to follow make recommendations where appropriate. Prognosis is guarded. The patient is likely a bit better today than he was yesterday. I did tell him to move about in bed when he is laying in bed. Plan dated 05/19/2021. The patient remains on vitamin C, vitamin D3, and zinc. In addition, the patient is on Decadron, and Lovenox. Finally, the patient is taking HEVER, 4 mg a day, for total of 14 days maximum. The patient's also on a albuterol inhaler. Additional recommendations and suggestions are forthcoming. Prognosis is guarded. I did tell the patient and make sure that when he is in bed, that he lays right side down, left side down, supine, and even prone if possible. Plan dated 05/21/2021. I asked the patient to stay off the partial rebreather mask, and just wear the 15 L high flow nasal O2. I then instructed the nurse to go into the room and about 15-20 minutes, and check a saturation. Clinically, the patient does not appear to be very short of breath. The patient's medications are reviewed. He is on appropriate medications at this time. Labs, x-rays, medications are all reviewed. Prognosis is guarded. Plan dated 05/22/2021. The patient continues to show slow improvement. We've been able to discontinue the partial rebreather mask. Currently, the patient is only on 15 L high flow nasal O2. That will also be titrated down. His saturations are in the low 90s. Clinically he feels improved. Chest x-ray shows diffuse bilateral infiltrates, which are unchanged. Labs are reviewed. Medications are appropriate. Prognosis is guarded. We will continue to follow this patient, and make recommendations where appropriate. Time with Patient: Less than 30
[2021-05-22 16:49] LABS: Glucose,Whole Blood 248 mg/dL (75-99)
--- NOTE | 2021-05-22 20:40 | PN ---
PROGRESS NOTE DATE OF SERVICE: 05/22/2021 REASON FOR FOLLOWUP: COVID-19 pneumonia. INTERVAL HISTORY: The patient is afebrile. The patient is breathing more comfortably. He is currently down to 13 L nasal cannula. The patient denies having any chest pain or worsening cough or sputum production. No abdominal pain or diarrhea. PHYSICAL EXAMINATION: Blood pressure 115/71, pulse of 57, temperature 97.8. He is 95% on 13 L nasal cannula. General description is a middle-aged male lying in bed in no distress. Respiratory system: Unlabored breathing, decreased breath sounds in the bases. No wheeze. Heart S1, S2. Regular rate and rhythm. Abdomen soft, no tenderness. Extremities no edema of the feet. LABS: Hemoglobin is 18.5, white count 10.3, creatinine 0.85. DIAGNOSTIC IMPRESSION AND PLAN: Patient with acute COVID-19 pneumonia in this patient who did have some clinical improvement, requiring less supplemental oxygen. Chest x-ray did not show significant change. Patient at this time to continue with baricitinib, dexamethasone, Lovenox, zinc and ascorbic acid along with respiratory support and monitor his clinical course closely. MMODL / IJN: [id number] /
[2021-05-23] MEDS: SODIUM CHLORIDE 0.9% 1,000 ML IV SCH ×2 (03:21→16:56)
[2021-05-23] MEDS: ALBUTEROL HFA INHALER INHALATION SCH ×4 (07:25→19:30)
[2021-05-23 07:30] LABS: Glucose,Whole Blood 116 mg/dL (75-99)
[2021-05-23] MEDS: INSULIN ASPART (NovoLOG) 100 UNIT/ML VIAL SQ SCH ×3 (08:30→16:56)
[2021-05-23] MEDS: ENOXAPARIN 40 MG/0.4 ML SYRINGE SQ SCH (08:31)
[2021-05-23] MEDS: dexAMETHasone 2 MG TAB PO SCH (08:31)
[2021-05-23] MEDS: ASCORBIC ACID 500 MG TAB PO SCH (08:31)
[2021-05-23] MEDS: CHOLECALCIFEROL 25 MCG (1000 IU) TABLET PO SCH (08:31)
[2021-05-23] MEDS: PANTOPRAZOLE 40 MG TABLET PO SCH (08:32)
[2021-05-23] MEDS: ZINC SULFATE 220 MG CAP PO SCH (08:32)
[2021-05-23 08:39] LABS: Basophils % (A) 0 %; Eosinophils % (A) 0 %; HCT 51.2 % (39.0-53.0); HGB 17.3 gm/dL (13.0-17.5); Lymphocytes # (A) 0.7 k/uL (1.0-4.8); Lymphocytes % (A) 9 %; MCH 31.1 pg (25.0-35.0); MCHC 33.8 g/dL (31.0-37.0); MCV 91.9 fL (80.0-100.0); Mean Platelet Volume 7.9; Monocytes # (A) 0.4 k/uL (0-1.0); Monocytes % (A) 6 %; Neutrophils # (A) 6.1 k/uL (1.3-7.7); Neutrophils % (A) 83 %; Platelet Count 253 k/uL (150-450); RBC 5.57 m/uL (4.30-5.90); RDW 11.9 % (11.5-15.5); WBC 7.4 k/uL (3.8-10.6)
[2021-05-23 08:55] LABS: ALT 77 U/L (4-49); AST 25 U/L (17-59); African American GFR (CKD) >90 (>60 ml/min/1.73 sqM); Albumin 2.9 g/dL (3.5-5.0); Albumin/Globulin Ratio 0.9; Alkaline Phosphatase 42 U/L (38-126); Anion Gap 6 mmol/L; Blood Urea Nitrogen 18 mg/dL (9-20); Calcium 8.9 mg/dL (8.4-10.2); Carbon Dioxide 28 mmol/L (22-30); Chloride 103 mmol/L (98-107); Globulin 3.1 g/dL; Glucose 156 mg/dL (74-99); Non-African American GFR(CKD) >90 (>60 ml/min/1.73 sqM); Potassium 4.2 mmol/L (3.5-5.1); Sodium 137 mmol/L (137-145); Total Bilirubin 0.8 mg/dL (0.2-1.3)
[2021-05-23 11:43] LABS: Glucose,Whole Blood 262 mg/dL (75-99)
[2021-05-23] MEDS: BARICITINIB 2 MG TABLET PO SCH (12:04)
--- NOTE | 2021-05-23 13:47 | P.PN ---
Subjective Progress Note Date: 05/23/21 On 05/23/2021 patient seen in follow-up on medical surgical floor, he is currently on 10 L of oxygen, his pulse ox is 96%. He is breathing comfortably, mild nonproductive cough, patient has mostly been on bedrest, she sits up and into the bed, he does use a urinal to void, has not tried walking to the ba throom yet. No fever or chills, no complaints of chest discomfort, he remains on Baricitinib, he is on Decadron 6 mg daily, he is on Lovenox 40 mg daily in addition to multivitamins. Yesterday's chest x-ray shows mild to moderate scattered airspace alveolar infiltrates, unchanged from most recent chest x-ray. His labs reviewed, white count is 7.4, hemoglobin is 17.3, electrolytes and renal profile within normal limits. Follow-up LDH and CRP are still pending for today. Objective - Vital Signs Vital signs: Vital Signs Temp 98.0 F 05/23/21 12:12 Pulse 51 L 05/23/21 12:12 Resp 16 05/23/21 12:12 BP 114/74 05/23/21 12:12 Pulse Ox 96 05/23/21 12:12 Intake & Output 05/22/21 05/23/21 05/23/21 18:59 06:59 18:59 Output Total 1450 Balance -1450 Output: Urine 1450 - Exam GENERAL EXAM: Alert, on 10 l/min comfortable in no apparent distress. HEAD: Normocephalic/atraumatic. EYES: Normal reaction of pupils, equal size. Conjunctiva pink, sclera white. NOSE: Clear with pink turbinates. THROAT: No erythema or exudates. NECK: No masses, no JVD, no thyroid enlargement, no adenopathy. CHEST: No chest wall deformity. Symmetrical expansion. LUNGS: Equal air entry with no crackles, wheeze, rhonchi or dullness. CVS: Regular rate and rhythm, normal S1 and S2, no gallops, no murmurs, no rubs ABDOMEN: Soft, nontender. No hepatosplenomegaly, normal bowel sounds, no guarding or rigidity. EXTREMITIES: No clubbing, no edema, no cyanosis, 2+ pulses and upper and lower extremities. MUSCULOSKELETAL: Muscle strength and tone normal. SPINE: No scoliosis or deformity SKIN: No rashes CENTRAL NERVOUS SYSTEM: Alert and oriented -3. No focal deficits, tone is normal in all 4 extremities. PSYCHIATRIC: Alert and oriented -3. Appropriate affect. Intact judgment and insight. - Labs CBC & Chem 7: 05/23/21 08:18 05/23/21 08:18 Labs: Abnormal Lab Results - Last 24 Hours (Table) 05/22/21 05/23/21 05/23/21 Range/Units 16:48 07:27 08:18 Lymphocytes # 0.7 L (1.0-4.8) k/uL Glucose (74-99) mg/dL POC Glucose (mg/dL) 248 H 116 H (75-99) mg/dL ALT (4-49) U/L Total Protein (6.3-8.2) g/dL Albumin (3.5-5.0) g/dL 05/23/21 05/23/21 Range/Units 08:18 11:41 Lymphocytes # (1.0-4.8) k/uL Glucose 156 H (74-99) mg/dL POC Glucose (mg/dL) 262 H (75-99) mg/dL ALT 77 H (4-49) U/L Total Protein 6.0 L (6.3-8.2) g/dL Albumin 2.9 L (3.5-5.0) g/dL Assessment and Plan Plan: Assessment: #1. Acute hypoxemic respiratory failure secondary to acute COVID-19 pneumonia. Diagnosed on 05/05/2021. Outside the window for Remdesivir. Not vaccinated. Initiated on Baricitinib. #2. Elevated inflammatory markers secondary to above #3. Obesity #4. History of AP #5. Diabetes mellitus #6. Currently incarcerated with multiple inmates with positive COVID-19 inf ection Plan: continue current medical treatment continue to wean Fio2, currently on 10 l/min continue Baricitinib, decadron and lovenox encourage IS, repositioning in bed follow up labs in am I performed a history & physical examination of the patient and discussed their management with my nurse practitioner, Renate Alcala. I reviewed the nurse practitioner's note and agree with the documented findings and plan of care. Lung sounds are positive for clear breath sounds throughout the lung alvarado. The findings and the impression was discussed with the patient. I attest to the documentation by the nurse practitioner. Time with Patient: Less than 30
[2021-05-23 16:56] LABS: Glucose,Whole Blood 212 mg/dL (75-99)
--- NOTE | 2021-05-23 18:39 | P.PN ---
Progress Note - Text Progress Note Date: 05/23/21 Chief Complaint: Short of breath This is a pleasant 41-year-old patient of Dr. Lio Mendes. Patient has a prior history of diabetes. He lost weight and use of medications. No diet control. Patient has been in the long term for last 4 months. Has been an outbreak in the long term of COVID-19. Patient has not taken vaccination for COVID-19. May 05 she started off getting symptoms the form of a fever. Progressively patient is become more short of breath and coughing. Some change in taste and decrease in smell. Having a mild headache. Tired rundown. Poor appetite. Patient became hypoxic is now admitted. He is outside the hospital guidelines window for IV Remdesivir. Started with IV prednisone. Baricitinib. Requiring high flow oxygen. Partially no breather. May 23: Tired. Reclining in bed. On 10 L nasal cannula. Eating some. On Baricitinib, dexamethasone. Review of systems: Was done for constitutional, cardiovascular, GI, pulmonary. relevant finding as above Active Medications Acetaminophen (Acetaminophen Tab 325 Mg Tab) 650 mg PO Q6HR PRN PRN Reason: Mild Pain or Fever > 100.5 Last Admin: 05/20/21 08:43 Dose: 650 mg Documented by: Albuterol Sulfate (Albuterol Hfa Inhaler) 2 puff INHALATION RT-QID [facility] Last Admin: 05/23/21 15:08 Dose: 2 puff Documented by: Ascorbic Acid (Ascorbic Acid 500 Mg Tab) 1,000 mg PO DAILY [facility] Last Admin: 05/23/21 08:31 Dose: 1,000 mg Documented by: Baricitinib (Baricitinib 2 Mg Tablet) 4 mg PO DAILY@1200 [facility] Stop: 05/29/21 12:01 Last Admin: 05/23/21 12:04 Dose: 4 mg Documented by: Cholecalciferol (Cholecalciferol 25 Mcg (1000 Iu) Tablet) 100 mcg PO DAILY [facility] Last Admin: 05/23/21 08:31 Dose: 100 mcg Documented by: Dexamethasone (Dexamethasone 2 Mg Tab) 6 mg PO DAILY [facility] Last Admin: 05/23/21 08:31 Dose: 6 mg Documented by: Enoxaparin Sodium (Enoxaparin 40 Mg/0.4 Ml Syringe) 40 mg SQ DAILY [facility] Last Admin: 11/08/21 08:31 Dose: 40 mg Documented by: Sodium Chloride (Saline 0.9%) 1,000 mls @ 75 mls/hr IV .[id number] [facility] Last Admin: 05/23/21 16:56 Dose: 75 mls/hr Documented by: Insulin Aspart (Insulin Aspart (Novolog) 100 Unit/Ml Vial) 0 unit SQ AC-TID [facility]; Protocol Last Admin: 05/23/21 16:56 Dose: 4 unit Documented by: Naloxone HCl (Naloxone 0.4 Mg/Ml 1 Ml Vial) 0.2 mg IV Q2M PRN PRN Reason: Opioid Reversal Pantoprazole Sodium (Pantoprazole 40 Mg Tablet) 40 mg PO DAILY [facility] Last Admin: 05/23/21 08:32 Dose: 40 mg Documented by: Zinc Sulfate (Zinc Sulfate 220 Mg Cap) 220 mg PO DAILY [facility] Last Admin: 05/23/21 08:32 Dose: 220 mg Documented by: Past medical history to include: Diabetes, currently not on any medications. Social history: Patient is finished to do worse nocturnal ago. Lives with his mother. 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 Family history: Hypertension Physical examination: VITAL SIGNS: 98, 51, 16, 114/74, 96% on 10 L GENERAL: Laying in bed, awake, short of breath. LUNGS: Respiratory rate increased, PSYCH: Alert and oriented x3; mood and affect anxious NEUROLOGICAL: Cranial nerves grossly intact; no facial asymmetry, moving all 4 limbs Rest of exam as per pulmonary and nursing INVESTIGATIONS, reviewed in the clinical context: May 23: WBC 7.4 hemoglobin 7.3 platelets 2534.2 creatinine 0.68 Accu-Cheks to 62 WBC 7.1 hemoglobin 7.6 platelets 136 lymphocytes 0.3 potassium 3.9 sodium 139 creatinine 0.65 d-dimer 0.59 Glucose 243 plasma lactic acid 2.8 troponin I less than 0.012 CRP 24.1 pro- calcitonin 0.46 Chest x-ray film personally reviewed by me-bilateral infiltrates EKG tracing personally reviewed by me-normal sinus rhythm. Rate 86 Assessment and plan: -COVID 19 pneumonitis the symptoms starting 10 days ago. Progressively getting worse. With hypoxia. Nonvaccinated for COVID-19: Slow to respond Dexamethasone 6, subcu Lovenox, vitamin C vitamin D. Baricitinib -Acute hypoxic respiratory failure from COVID 19 pneumonitis: Slow to respond high flow cannula 10 L. Incentive spirometry. -Obesity BMI 39.2 Weight loss measures -Diabetes mellitus type 2, patient been off medications. Currently uncontrolled with hyperglycemia. Secondary to steroids Levemir 10 units subcu daily at bedtime. Sliding scale insulin. -Thrombocytopenia mild with COVID 19 pneumonitis: Improved Follow CBC -Lymphocytopenia From COVID 19 -Lactic acidosis, type II from fluid deficit IV fluids - Dexamethasone, Baricitinib, subcu Lovenox, Oxygen supplement 10 L. Incentive spirometry. Encouraged to sit up at the edges of breath/in a chair.
[2021-05-23 20:52] LABS: Glucose,Whole Blood 290 mg/dL (75-99)
[2021-05-23] MEDS: INSULIN DETEMIR (LEVEMIR) 100 UNIT/ML SYR SQ SCH (21:33)
--- NOTE | 2021-05-23 22:58 | PN ---
PROGRESS NOTE DATE OF SERVICE: 05/23/2021 REASON FOR FOLLOWUP: COVID-19 pneumonia. INTERVAL HISTORY: Patient is afebrile. The patient is breathing comfortably. Patient denies having any chest pain or shortness of breath. Cough has decreased intensity. No vomiting. No abdominal pain. No diarrhea. PHYSICAL EXAMINATION: Blood pressure is 112/64, pulse of 65, temperature 98.7. She is 93% on 2 L nasal cannula. General description is a middle-aged male lying in bed in no distress. Respiratory system: Unlabored breathing, decreased intensity of breath sounds. No wheeze. Heart S1, S2. Regular rate and rhythm. Abdomen soft, no tenderness. LABS: Hemoglobin 17.1, white count 7.4, creatinine 0.68. DIAGNOSTIC IMPRESSION/PLAN: Patient with acute respiratory failure secondary to acute COVID-19 pneumonia in this patient who did have minimal clinical improvement with less oxygen requirement. Patient to continue with baricitinib, dexamethasone, Lovenox, zinc and ascorbic acid along with respiratory support and monitor clinical course closely. MMODL / IJN: [id number] /
[2021-05-24 07:01] LABS: Glucose,Whole Blood 125 mg/dL (75-99)
[2021-05-24 07:09] LABS: LDH 569 U/L (313-618)
--- NOTE | 2021-05-24 08:07 | XR ---
EXAMINATION TYPE: XR chest 1V portable DATE OF EXAM: 05/24/2021 CLINICAL HISTORY: Difficulty breathing and covid progress study. TECHNIQUE: Single AP portable upright view of the chest is obtained. COMPARISON: Chest x-ray from 2 days earlier and older studies FINDINGS: Low lung volumes with patchy bibasilar and left midlung opacities is redemonstrated. Stabl e mild cardiomegaly. Osseous structures are intact. Overlying clothing or blanket material noted. IMPRESSION: Low lung volumes and cardiomegaly with bilateral multifocal lower lung opacities consiste nt with known covid-19 infection redemonstrated. No significant change from most recent x-ray.
[2021-05-24] MEDS: ALBUTEROL HFA INHALER INHALATION SCH ×4 (08:12→20:31)
[2021-05-24 08:30] LABS: C Reactive Protein <0.5 mg/dL (<1.0)
[2021-05-24] MEDS: INSULIN ASPART (NovoLOG) 100 UNIT/ML VIAL SQ SCH ×3 (10:17→17:26)
[2021-05-24] MEDS: PANTOPRAZOLE 40 MG TABLET PO SCH (10:26)
[2021-05-24] MEDS: ASCORBIC ACID 500 MG TAB PO SCH (10:26)
[2021-05-24] MEDS: ZINC SULFATE 220 MG CAP PO SCH (10:26)
[2021-05-24] MEDS: ENOXAPARIN 40 MG/0.4 ML SYRINGE SQ SCH (10:27)
[2021-05-24] MEDS: dexAMETHasone 2 MG TAB PO SCH (10:27)
[2021-05-24] MEDS: CHOLECALCIFEROL 25 MCG (1000 IU) TABLET PO SCH (10:27)
[2021-05-24] MEDS: SODIUM CHLORIDE 0.9% 1,000 ML IV SCH (10:28)
[2021-05-24 12:01] LABS: Glucose,Whole Blood 138 mg/dL (75-99)
[2021-05-24] MEDS: BARICITINIB 2 MG TABLET PO SCH (12:01)
--- NOTE | 2021-05-24 13:02 | P.PN ---
Subjective Progress Note Date: 05/24/21 On today's evaluation of 05/24/2021, the patient is improving is currently down to 3 L of oxygen by nasal cannula. Noted on yesterday's evaluation he was on 10 L. As such, the patient's oxygenation is gradually improving. He feels well. His chest x-ray was showing scattered bilateral airspace disease or valvular changes. This current pulse ox is 94%. He is hemodynamically stable. His breathing is nonlabored. The patient remains on Lovenox 40 mg subcu every 24 hours and is also on Decadron 6 mg by mouth daily. The patient's labs show an LDH level of 569 and a CRP level of less than 0.5 and the d-dimer is at 0.36. As such, the patient is stable for now. A repeat chest x-ray was done today and the chest x-ray showed low lung volumes and cardiomegaly and some bilateral multifocal lower lobe patchy pulmonary infiltrates. Note that despite his clinical improvement, there is no significant change in his chest x-ray findings although there is some limited improvement is noted on the left. Objective - Vital Signs Vital signs: Vital Signs Temp 97.8 F 05/24/21 10:00 Pulse 57 L 05/24/21 10:00 Resp 19 05/24/21 10:00 BP 111/72 05/24/21 10:00 Pulse Ox 94 L 05/24/21 10:00 Intake & Output 05/23/21 05/24/21 05/24/21 18:59 06:59 18:59 Intake Total 500 Output Total 600 Balance -600 500 Intake: Oral 500 Output: Urine 600 Other: Voiding Method Toilet # Voids 3 - Exam GENERAL EXAM: Alert, on 3 l/min comfortable in no apparent distress. HEAD: Normocephalic/atraumatic. EYES: Normal reaction of pupils, equal size. Conjunctiva pink, sclera white. NOSE: Clear with pink turbinates. THROAT: No erythema or exudates. NECK: No masses, no JVD, no thyroid enlargement, no adenopathy. CHEST: No chest wall deformity. Symmetrical expansion. LUNGS: Equal air entry with no crackles, wheeze, rhonchi or dullness. CVS: Regular rate and rhythm, normal S1 and S2, no gallops, no murmurs, no rubs ABDOMEN: Soft, nontender. No hepatosplenomegaly, normal bowel sounds, no guarding or rigidity. EXTREMITIES: No clubbing, no edema, no cyanosis, 2+ pulses and upper and lower extremities. MUSCULOSKELETAL: Muscle strength and tone normal. SPINE: No scoliosis or deformity SKIN: No rashes CENTRAL NERVOUS SYSTEM: Alert and oriented -3. No focal deficits, tone is normal in all 4 extremities. PSYCHIATRIC: Alert and oriented -3. Appropriate affect. Intact judgment and insight. - Labs CBC & Chem 7: 05/23/21 08:18 05/23/21 08:18 Labs: Abnormal Lab Results - Last 24 Hours (Table) 05/23/21 05/23/21 05/24/21 Range/Units 16:43 20:49 07:00 POC Glucose (mg/dL) 212 H 290 H 125 H (75-99) mg/dL 05/24/21 Range/Units 11:59 POC Glucose (mg/dL) 138 H (75-99) mg/dL Assessment and Plan Plan: #1. Acute hypoxemic respiratory failure secondary to acute COVID-19 pneumonia. Diagnosed on 05/05/2021. Outside the window for Remdesivir. Not vaccinated. The patient continues to improve clinically. The patient is on a combination of Baricitinib, Decadron and Lovenox. His oxygen is also improving and is currently down to 3 L of oxygen by nasal cannula and his inflammatory markers have improved. As such, the patient is along the lines of improvement #2. Elevated inflammatory markers secondary to above #3. Obesity #4. History of AP #5. Diabetes mellitus #6. Currently incarcerated with multiple inmates with positive COVID-19 infection Plan: continue current medical treatment continue to wean Fio2, currently on 3 L of oxygen by nasal cannula continue Baricitinib, decadron and lovenox encourage IS, repositioning in bed follow up labs in am, as the patient continues to improve, discharge planning is in progress, possibly discharge along with home O2. He the patient is an inmate in a local prison.
[2021-05-24 16:32] LABS: Glucose,Whole Blood 230 mg/dL (75-99)
--- NOTE | 2021-05-24 17:17 | P.PN ---
Progress Note - Text Progress Note Date: 05/24/21 Chief Complaint: Short of breath This is a pleasant 41-year-old patient of Dr. Lio Mendes. Patient has a prior history of diabetes. He lost weight and use of medications. No diet control. Patient has been in the nursing home for last 4 months. Has been an outbreak in the nursing home of COVID-19. Patient has not taken vaccination for COVID-19. May 05 she started off getting symptoms the form of a fever. Progressively patient is become more short of breath and coughing. Some change in taste and decrease in smell. Having a mild headache. Tired rundown. Poor appetite. Patient became hypoxic is now admitted. He is outside the hospital guidelines window for IV Remdesivir. Started with IV prednisone. Baricitinib. Requiring high flow oxygen. Partially no breather. May 23: Tired. Reclining in bed. On 10 L nasal cannula. Eating some. On Baricitinib, dexamethasone. May 24: Doing better. Eating 100%. Breathing better. FiO2 down to 6 L. Discussed with the patient to sit up in a chair. Increase activity in the room. Spoke to the nurse to cut back on FiO2. Encourage incentive spirometry. Review of systems: Was done for constitutional, cardiovascular, GI, pulmonary. relevant finding as above Active Medications Acetaminophen (Acetaminophen Tab 325 Mg Tab) 650 mg PO Q6HR PRN PRN Reason: Mild Pain or Fever > 100.5 Last Admin: 05/20/21 08:43 Dose: 650 mg Documented by: Albuterol Sulfate (Albuterol Hfa Inhaler) 2 puff INHALATION RT-QID [facility] Last Admin: 05/24/21 14:57 Dose: 2 puff Documented by: Ascorbic Acid (Ascorbic Acid 500 Mg Tab) 1,000 mg PO DAILY [facility] Last Admin: 05/24/21 10:26 Dose: 1,000 mg Documented by: Baricitinib (Baricitinib 2 Mg Tablet) 4 mg PO DAILY@1200 [facility] Stop: 05/29/21 12:01 Last Admin: 05/24/21 12:01 Dose: 4 mg Documented by: Cholecalciferol (Cholecalciferol 25 Mcg (1000 Iu) Tablet) 100 mcg PO DAILY [facility] Last Admin: 05/24/21 10:27 Dose: 100 mcg Documented by: Dexamethasone (Dexamethasone 2 Mg Tab) 6 mg PO DAILY [facility] Last Admin: 05/24/21 10:27 Dose: 6 mg Documented by: Enoxaparin Sodium (Enoxaparin 40 Mg/0.4 Ml Syringe) 40 mg SQ DAILY [facility] Last Admin: 05/24/21 10:27 Dose: 40 mg Documented by: Insulin Aspart (Insulin Aspart (Novolog) 100 Unit/Ml Vial) 0 unit SQ AC-TID [facility]; Protocol Last Admin: 05/24/21 12:04 Dose: Not Given Documented by: Insulin Detemir (Insulin Detemir (Levemir) 100 Unit/Ml Syr) 10 unit SQ HS [facility] Last Admin: 05/23/21 21:33 Dose: 10 unit Documented by: Naloxone HCl (Naloxone 0.4 Mg/Ml 1 Ml Vial) 0.2 mg IV Q2M PRN PRN Reason: Opioid Reversal Pantoprazole Sodium (Pantoprazole 40 Mg Tablet) 40 mg PO DAILY [facility] Last Admin: 05/24/21 10:26 Dose: 40 mg Documented by: Zinc Sulfate (Zinc Sulfate 220 Mg Cap) 220 mg PO DAILY [facility] Last Admin: 05/24/21 10:26 Dose: 220 mg Documented by: Past medical history to include: Diabetes, currently not on any medications. Social history: Patient is finished to do worse nocturnal ago. Lives with his mother. 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 Family history: Hypertension Physical examination: VITAL SIGNS: 97.8, 57, 19, 111/72, 94% on 5 L GENERAL: Laying in bed, awake, breathing better LUNGS: Respiratory rate increased, PSYCH: Alert and oriented x3; mood and affect anxious NEUROLOGICAL: Cranial nerves grossly intact; no facial asymmetry, moving all 4 limbs Rest of exam as per pulmonary and nursing INVESTIGATIONS, reviewed in the clinical context: May 24: D-dimer 0.36 CRP less than 0.5 May 23: WBC 7.4 hemoglobin 7.3 platelets 2534.2 creatinine 0.68 Accu-Cheks to 62 WBC 7.1 hemoglobin 7.6 platelets 136 lymphocytes 0.3 potassium 3.9 sodium 139 creatinine 0.65 d-dimer 0.59 Glucose 243 plasma lactic acid 2.8 troponin I less than 0.012 CRP 24.1 pro- calcitonin 0.46 Chest x-ray film personally reviewed by me-bilateral infiltrates EKG tracing personally reviewed by me-normal sinus rhythm. Rate 86 Assessment and plan: -COVID 19 pneumonitis the symptoms starting 10 days ago. Progressively getting worse. With hypoxia. Nonvaccinated for COVID-19: Better Dexamethasone 6, subcu Lovenox, vitamin C vitamin D. Baricitinib -Acute hypoxic respiratory failure from COVID 19 pneumonitis: Improving FiO2 6 L. Incentive spirometry. -Obesity BMI 39.2 Weight loss measures -Diabetes mellitus type 2, patient been off medications. Currently uncontrolled with hyperglycemia. Secondary to steroids Levemir 10 units subcu daily at bedtime. Sliding scale insulin. -Thrombocytopenia mild with COVID 19 pneumonitis: Improved Follow CBC -Lymphocytopenia From COVID 19 -Lactic acidosis, type II from fluid deficit: Better IV fluids - Dexamethasone, Baricitinib, subcu Lovenox, Oxygen supplement 6 L. Incentive spirometry. Patient increased activity in the room. Decrease FiO2. In the morning assess FiO2 requirement with activity.
[2021-05-24 21:00] LABS: Glucose,Whole Blood 272 mg/dL (75-99)
[2021-05-24] MEDS: INSULIN DETEMIR (LEVEMIR) 100 UNIT/ML SYR SQ SCH (21:16)
--- NOTE | 2021-05-24 23:48 | PN ---
PROGRESS NOTE DATE OF SERVICE: 05/24/2021 REASON FOR FOLLOWUP: COVID-19 pneumonia. INTERVAL HISTORY: The patient is afebrile. The patient is breathing more comfortably. The patient is currently down to 3 L nasal cannula. The patient denies having any chest pain. Cough has decreased in intensity. No vomiting. No abdominal pain or diarrhea. PHYSICAL EXAMINATION: Blood pressure 109/73 with a pulse of 61, temperature 98. He is 93% on 3 L nasal cannula. General description is a middle-aged male lying in bed in no distress. Respiratory system: Unlabored breathing, decreased intensity of breath sounds. No wheeze. Heart S1, S2. Regular rate and rhythm. Abdomen soft, no tenderness. LABS: D-dimer is 0.36. CRP 0.5. DIAGNOSTIC IMPRESSION AND PLAN: Patient with acute COVID-19 pneumonia in this patient who has shown overall clinical improvement with less requirement for the supplemental oxygen. CRP normalized. To continue with the current treatment with baricitinib, dexamethasone, Lovenox, zinc and ascorbic acid and continue with supportive care. MMODL / IJN: [id number] /
[2021-05-25 06:09] VITALS: RESP 17
[2021-05-25 07:08] LABS: Glucose,Whole Blood 144 mg/dL (75-99)
[2021-05-25] MEDS: ASCORBIC ACID 500 MG TAB PO SCH (07:57)
[2021-05-25] MEDS: ENOXAPARIN 40 MG/0.4 ML SYRINGE SQ SCH (07:57)
[2021-05-25] MEDS: ZINC SULFATE 220 MG CAP PO SCH (07:57)
[2021-05-25] MEDS: CHOLECALCIFEROL 25 MCG (1000 IU) TABLET PO SCH (07:57)
[2021-05-25] MEDS: dexAMETHasone 2 MG TAB PO SCH (07:57)
[2021-05-25] MEDS: PANTOPRAZOLE 40 MG TABLET PO SCH (07:57)
[2021-05-25] MEDS: INSULIN ASPART (NovoLOG) 100 UNIT/ML VIAL SQ SCH ×2 (07:58→12:40)
[2021-05-25] MEDS: ALBUTEROL HFA INHALER INHALATION SCH ×2 (08:36→11:43)
[2021-05-25 10:16] VITALS: BP 121/78; PULSE 64; TEMP 98.1
[2021-05-25 12:00] LABS: Glucose,Whole Blood 263 mg/dL (75-99)
[2021-05-25] MEDS: BARICITINIB 2 MG TABLET PO SCH (12:40)
--- NOTE | 2021-05-26 10:33 | P.DS ---
Providers Date of admission: 05/15/21 08:37 Expected date of discharge: 05/25/21 Attending physician: Juvencio Morales Consults: 05/15/21 08:37 Consult Physician Routine Consulting Provider: Jason Way Consult Reason/Comments: COVID Do you want consulting provider notified?: Yes Consult Physician Routine Consulting Provider: Leon Bazzi Consult Reason/Comments: COVID Do you want consulting provider notified?: Yes Primary care physician: Lio Mendes [facility] Course: Chief Complaint: Short of breath This is a pleasant 41-year-old patient of Dr. Lio Mendes. Patient has a prior history of diabetes. He lost weight and use of medications. No diet control. Patient has been in the [facility] for last 4 months. Has been an outbreak in the [facility] of COVID-19. Patient has not taken vaccination for COVID-19. May 05 she started off getting symptoms the form of a fever. Progressively patient is become more short of breath and coughing. Some change in taste and decrease in smell. Having a mild headache. Tired rundown. Poor appetite. Patient became hypoxic is now admitted. He is outside the hospital guidelines window for IV Remdesivir. Started with IV prednisone. Baricitinib. Requiring high flow oxygen. Partial non breather. Patient did gradually improve. Appetite started to supervisor opening and picking. Started to ambulate. Today: Doing better. 91% on room air. 89% with ambulation. He'll be sent home with 2 L. Patient told to increase activity. Continue to use incentive spirometry. Oxygen being arranged. Prescriptions were done. Discussed with the medical case worker and officer with the patient. COVID-19 precautions. We'll give xarelto 10 mg for DVT prophylaxis. And tapering dose of prednisone. Given the complexity and severity of patient's condition expect the patient to be in the hospital at least for 2 overnights Consultation: Dr. aJmes in [facility] from pulmonary Dr. Bazzi from [facility] Past medical history to include: Diabetes, currently not on any medications. Social history: Patient is finished to do worse nocturnal ago. Lives with his mother. 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 Family history: Hypertension Physical examination: VITAL SIGNS: 98.1, 64, 17, 1 21 x 78, 91% on room air, 89% with activity GENERAL: , awake, breathing better LUNGS: Respiratory rate increased, PSYCH: Alert and oriented x3; mood and affect anxious INVESTIGATIONS, reviewed in the clinical context: May 24: D-dimer 0.36 CRP less than 0.5 May 23: WBC 7.4 hemoglobin 7.3 platelets 2534.2 creatinine 0.68 Accu-Cheks to 62 WBC 7.1 hemoglobin 7.6 platelets 136 lymphocytes 0.3 potassium 3.9 sodium 139 creatinine 0.65 d-dimer 0.59 Glucose 243 plasma lactic acid 2.8 troponin I less than 0.012 CRP 24.1 pro- calcitonin 0.46 Chest x-ray film personally reviewed by me-bilateral infiltrates EKG tracing personally reviewed by me-normal sinus rhythm. Rate 86 Assessment and plan: -COVID 19 pneumonitis the symptoms starting 10 days ago. Progressively getting worse. With hypoxia. Nonvaccinated for COVID-19: Dexamethasone 6, subcu Lovenox, vitamin C vitamin D. Baricitinib Discharged home on prednisone taper. Xarelto 10 mg a day for 30 days. -Acute hypoxic respiratory failure from COVID 19 pneumonitis: Home with 2 L Incentive spirometry. -Obesity BMI 39.2 Weight loss measures -Diabetes mellitus type 2, patient been off medications. Currently uncontrolled with hyperglycemia. Secondary to steroids Diet-controlled -Thrombocytopenia mild with COVID 19 pneumonitis: Improved Follow CBC -Lymphocytopenia From COVID 19 -Lactic acidosis, type II from fluid deficit: Better IV fluids - Disposition: Residential Plan - Discharge Summary Discharge Rx Participant: No New Discharge Prescriptions: New predniSONE 10 mg PO DAILY #30 tab Albuterol Inhaler [Ventolin Hfa Inhaler] 2 puff INHALATION RT-QID #1 gm Rivaroxaban [Xarelto] 10 mg PO DAILY #30 tab Zinc Sulfate [Orazinc] 220 mg PO DAILY #30 cap Continue Omeprazole 20 mg PO DAILY Discontinued Ipratropium-Albuterol Nebulize [Duoneb 0.5 mg-3 mg/3 ml Soln] 3 ml INHALATION RT-TID PRN PRN Reason: Shortness Of Breath Acetaminophen Tab [Tylenol Tab] 1,000 mg PO BID PRN PRN Reason: Fever And/ Or Pain Discharge Medication List Omeprazole 20 mg PO DAILY 05/15/21 [History] Albuterol Inhaler [Ventolin Hfa Inhaler] 2 puff INHALATION RT-QID #1 gm 05/25/21 [Rx] Rivaroxaban [Xarelto] 10 mg PO DAILY #30 tab 05/25/21 [Rx] Zinc Sulfate [Orazinc] 220 mg PO DAILY #30 cap 05/25/21 [Rx] predniSONE 10 mg PO DAILY #30 tab 05/25/21 [Rx] Follow up Appointment(s)/Referral(s): Lio Mendes MD [Primary Care Provider] - 1 Week None,Stated [REFERRING] - 1-2 days Patient Instructions/Handouts: Coronavirus Disease 2019 (COVID-19) Activity/Diet/Wound Care/Special Instructions: covid -19 instructions fio2 - 2/L Prescription for zinc called in to [facility] in [place]. Discharge Disposition: DC/TRANSFER COURT/LAW
== END 2021-05-25 13:21 | DRG 177 ==
LOC: EC 07:07 → 4SSUR 08:37
PROVIDERS: ADMIT Hospitalist; ATTEND Hospitalist
DX: U07.1 COVID-19 (principal); J12.82 Pneumonia due to coronavirus disease 2019; J96.01 Acute respiratory failure with hypoxia; E87.2 Acidosis; F32.9 Major depressive disorder, single episode, unspecified; Z68.39 Body mass index [BMI] 39.0-39.9, adult; Z82.49 Family history of ischemic heart disease and other diseases of the circulatory system; Z79.4 Long term (current) use of insulin; Z79.01 Long term (current) use of anticoagulants; E66.9 Obesity, unspecified; E11.65 Type 2 diabetes mellitus with hyperglycemia; D69.6 Thrombocytopenia, unspecified; D72.810 Lymphocytopenia; T38.0X5A Adverse effect of glucocorticoids and synthetic analogues, initial encounter; R09.89 Other specified symptoms and signs involving the circulatory and respiratory systems; R06.82 Tachypnea, not elsewhere classified
CPT/HCPCS: 36415; 71045; 80053; 82728; 83605; 83615; 83735; 84145; 84484; 85025; 85379; 85610; 85730; 86140; 93005; 94640; 94760; 96361; 96374; 99285